=== PATIENT | male | born 1950 ===

== ENCOUNTER 2020-06-21 12:53 | Emergency (ER) | payer MEDICARE, SELFPAY ==
[2020-06-21 13:00] VITALS: BP 129/68; PULSE 86; RESP 18; TEMP 37; O2SAT 97; BMI 38.2
[2020-06-21 13:13] LABS: Glucose, Whole Blood 143 mg/dL (60-115)
--- NOTE | 2020-06-21 13:56 | ECG_ITS ---
Test Reason : NEAR SYNCOPE Blood Pressure : / mmHG Vent. Rate : 083 BPM Atrial Rate : 083 BPM P-R Int : 178 ms QRS Dur : 090 ms QT Int : 368 ms P-R-T Axes : 001 -42 060 degrees QTc Int : 432 ms Normal sinus rhythm Left anterior fascicular block Nonspecific T wave abnormality Abnormal ECG No previous ECGs available Referred By: Ladonna Chowdary Electronically Signed By:DARIA ROOT MD
--- NOTE | 2020-06-21 13:57 | ED_ITS ---
HPI - General Adult General Chief complaint: General Medical Stated complaint: near syncopy Time Seen by Provider: 06/21/20 13:46 Source: patient Mode of arrival: ambulatory Limitations: no limitations History of Present Illness HPI narrative: patient comes to the emergency room complaining of a near syncopal episode. Prior to arriving today's emergency room, patient was on the other side of the hospital at the [facility] waiting in line to be tested for COVID- 19. Patient states suddenly he felt lightheaded, and was lowered by bystanders to the ground. Patient states he did not have any chest pain, no shortness of breath, did not hit his head, denies being on blood thinners. Patient states he has been feeling 80 with chills over the last 2-3 days, patient states his has similar symptoms. Patient denies shortness of breath. Related Data Allergies Allergy/AdvReac Type Severity Reaction Status Date / Time No Known Allergies Allergy Verified 06/21/20 13:00 [No Known Allergies*] Review of Systems Review of Systems: Constitutional : No Weight loss, No Fever, Complaining of mild chills, generalized malaise AZUL ENT/Mouth : No Hearing loss, No Ear Pain, No Nasal Congestion, No Sinus Pain, No Hoarseness, No sore throat, No Rhinorrhea, No Swallowing Difficulty Eyes: No Eye Pain, No Swelling, No Redness, No Foreign Body, No Discharge, No Vision Changes Cardiovascular : No Chest Pain, No SOB, No Dyspnea on Exertion, No Orthopnea, No Edema, No Palpitations Respiratory : No Cough, No Sputum, No Wheezing, No Smoke Exposure, No Dyspnea Gastrointestinal : No Nausea, No Vomiting, No Diarrhea, No Constipation, No abdominal Pain, No Hematochezia, No Melena Genitourinary : no irregular bleeding, No Dysuria, No Urinary Frequency, No Hematuria, No Urinary Incontinence, No Urgency, No Flank Pain, No Urinary Flow Changes, No Hesitancy Musculoskeletal : No joint pain, No Myalgias, No Joint Swelling Skin : No Skin Lesions, No rash Neuro : No Weakness, No Numbness, No Paresthesias, No Loss of Consciousness, 1 episode of lightheadedness a near-syncope, No Headache Psych : No Anxiety/Panic, No Depression, No SI/HI/AH/VH, No Social Issues, Heme/Lymph: No Bruising, No Bleeding,No Lymphadenopathy Endocrine : No Polyuria, No Polydipsia, No Temperature Intolerance [facility] Past Medical History Medical History HTN (hypertension) Social History Social History Alcohol intake: unknown Smoked in Last 30 Days: No Use of substances other than those prescribed or required for medical reasons: No Advance Directives: No Advance Directives Information Provided: No Physical Exam Vital Signs: Vital Signs: Vital Signs Temp Pulse Resp BP Pulse Ox 06/21/20 15:31 82 16 125/77 97 06/21/20 13:00 98.6 F 86 18 129/68 97 Body Mass Index 38.2 Appearance: Alert. Oriented X3. No acute distress. Eyes: Pupils equal, round and reactive to light. ENT: Pharynx normal. Neck: Normal inspection. Neck supple. No lymph nodes noted. No crepitus CVS: Normal heart rate and rhythm. Pulses normal. Normal S1 and S2 Respiratory: No respiratory distress. Breath sounds normal. No Wheezing. No rales Abdomen: Soft and nontender. No rigidity. No distention. good BS x4 Skin: Skin warm and dry. Normal skin color. Normal skin turgor. Extremities: No lower extremity edema. No lower extremity edema. No Laceratio ns. No Rash Neuro: Oriented X 3. No motor deficit. No sensory deficit. Moving all extermities. No slurred speech. Course Course Course Narrative: patient's troponin is slightly elevated. At this time patient does not have any shortness of breath and no chest pain. Troponing #2 pending , to be drawn at 530pm Patient's COVID test is positive. Patient has been informed. the near syncope today was likely secondary to a vasovagal episode Sign-out given to Dr. Marie Medical Decision Making Lab Data Result diagrams: 06/21/20 14:35 06/21/20 14:35 Labs: Lab Results 06/21/20 06/21/20 06/21/20 Range/Units 13:09 14:35 14:35 WBC 3.7 L (4.8-10.8) X10*3/uL RBC 5.05 (4.60-5.80) X10*6/uL Hgb 14.8 (14.0-18.0) g/dl Hct 45.5 (42-52) % MCV 90.1 (80-98) fL MCH 29.3 (27.0-33.0) pg MCHC 32.5 (31.0-36.0) g/dl RDW 12.5 (11.0-16.0) % Plt Count 172 (160-400) X10*3/uL MPV 11.2 (9.4-12.4) fL Immature Gran % (Auto) 0.3 (0.0-0.4) % Neut % (Auto) 54.2 (45-73) % Lymph % (Auto) 31.5 (20-40) % [place] % (Auto) 13.7 H (2-11) % Eos % (Auto) 0.0 (0-4) % Baso % (Auto) 0.3 (0-2) % Lymph # (Auto) 1.2 (1.2-4.9) X10*3/uL [place] # (Auto) 0.5 (0.1-1.2) X10*3/uL Eos # (Auto) 0.0 (0.0-0.4) X10*3/uL Baso # (Auto) 0.0 (0.0-0.2) X10*3/uL Abs Immat Gran (auto) 0.01 (0.00-0.03) X10*3/uL Absolute Neuts (auto) 2.0 (2.0-8.3) X10*3/uL Absolute Nucleated RBC 0.000 (0.0-0.012) X10*3/uL Nucleated RBC % (auto) 0.0 (0.0-0.2) /100WBC D-Dimer 455 NG/ML Sodium (135-145) mmol/L Potassium (3.3-5.1) mmol/l Chloride (96-108) mmol/L Carbon Dioxide (22-29) mmol/L Anion Gap (12-20) BUN (9-16) mg/dL Creatinine (0.5-1.4) mg/dL Estim Creat Clear Calc Estimated GFR POC Glucose 143 H (60-115) mg/dL Random Glucose (60-115) mg/dL Calcium (8.4-10.2) mg/dL Troponin I High Sens (<3.5-35.0) ng/L Coronavirus (PCR) (Negative) 06/21/20 06/21/20 06/21/20 Range/Units 14:35 14:35 15:32 WBC (4.8-10.8) X10*3/uL RBC (4.60-5.80) X10*6/uL Hgb (14.0-18.0) g/dl Hct (42-52) % MCV (80-98) fL MCH (27.0-33.0) pg MCHC (31.0-36.0) g/dl RDW (11.0-16.0) % Plt Count (160-400) X10*3/uL MPV (9.4-12.4) fL Immature Gran % (Auto) (0.0-0.4) % Neut % (Auto) (45-73) % Lymph % (Auto) (20-40) % [place] % (Auto) (2-11) % Eos % (Auto) (0-4) % Baso % (Auto) (0-2) % Lymph # (Auto) (1.2-4.9) X10*3/uL [place] # (Auto) (0.1-1.2) X10*3/uL Eos # (Auto) (0.0-0.4) X10*3/uL Baso # (Auto) (0.0-0.2) X10*3/uL Abs Immat Gran (auto) (0.00-0.03) X10*3/uL Absolute Neuts (auto) (2.0-8.3) X10*3/uL Absolute Nucleated RBC (0.0-0.012) X10*3/uL Nucleated RBC % (auto) (0.0-0.2) /100WBC D-Dimer NG/ML Sodium 133 L (135-145) mmol/L Potassium 4.5 (3.3-5.1) mmol/l Chloride 98 (96-108) mmol/L Carbon Dioxide 26 (22-29) mmol/L Anion Gap 14 (12-20) BUN 14 (9-16) mg/dL Creatinine 1.65 H (0.5-1.4) mg/dL Estim Creat Clear Calc 46.3 Estimated GFR 41 POC Glucose (60-115) mg/dL Random Glucose 113 (60-115) mg/dL Calcium 8.6 (8.4-10.2) mg/dL Troponin I High Sens 7.0 (<3.5-35.0) ng/L Coronavirus (PCR) POSITIVE A (Negative) ECG Data Attestation: I personally reviewed and interpreted this ECG as follows: ( Normal sinus rhythm, heart rate 83, QTC 432, no ST segment depressions or elevations, non specific T-wave abnormalities) Discharge Plan Discharge Clinical Impression: COVID-19, Near syncope
[2020-06-21 14:43] LABS: Basophils Percent Auto 0.3 % (0-2); Hematocrit 45.5 % (42-52); Hemoglobin 14.8 g/dl (14.0-18.0); Imm Gran Abs Auto 0.01 X10*3/uL (0.00-0.03); Imm Gran Pct Auto 0.3 % (0.0-0.4); Lymphocytes Absolute Auto 1.2 X10*3/uL (1.2-4.9); Lymphocytes Percent Auto 31.5 % (20-40); MANUAL DIFF FLAG NO; Mean Corpuscular HGB Conc 32.5 g/dl (31.0-36.0); Mean Corpuscular Hemoglobin 29.3 pg (27.0-33.0); Mean Corpuscular Volume 90.1 fL (80-98); Mean Platelet Volume 11.2 fL (9.4-12.4); Monocytes Absolute Auto 0.5 X10*3/uL (0.1-1.2); Monocytes Percent Auto 13.7 % (2-11); Neutrophils Percent Auto 54.2 % (45-73); Platelet Count 172 X10*3/uL (160-400); Red Blood Count 5.05 X10*6/uL (4.60-5.80); Red Cell Distribution Width 12.5 % (11.0-16.0); White Blood Count 3.7 X10*3/uL (4.8-10.8)
[2020-06-21 14:56] LABS: D Dimer 455 NG/ML
[2020-06-21 15:05] LABS: Anion Gap 14 (12-20); Blood Urea Nitrogen 14 mg/dL (9-16); Calcium 8.6 mg/dL (8.4-10.2); Carbon Dioxide 26 mmol/L (22-29); Chloride 98 mmol/L (96-108); Creatinine Clr Calc Pharmacy 46.3; Estimated Glomerular Filt Rate 41; Glucose Random 113 mg/dL (60-115); Potassium 4.5 mmol/l (3.3-5.1); Sodium 133 mmol/L (135-145)
[2020-06-21 15:31] VITALS: BP 125/77; PULSE 82; RESP 16; O2SAT 97
[2020-06-21 16:26] LABS: SARS COV2 PCR INHOUSE POSITIVE (Negative)
--- NOTE | 2020-06-21 16:36 | XR_ITS ---
EXAMINATION: XR CHEST CLINICAL INFORMATION: Rule out pneumonia COMPARISON: Chest x-ray 01/05/2012 TECHNIQUE: Frontal view of the chest was obtained. FINDINGS: Cardiac silhouette is normal in size. Lungs are well aerated. No lobar consolidation. No pleural effusion or pneumothorax. XR/XR chest 1V IMPRESSION: No acute pulmonary pathology.
[2020-06-21] MEDS: 0.9 % Sodium Chloride 1,000 ML 999 ML IVCONT (16:40)
--- NOTE | 2020-06-21 16:49 | PC.NURSE ---
pt sitting upright in bed, resps are = and nonlabored with clear bronchial and vesicular lung sounds bilat. pt is awaitng repeat trop and chest xray for dispo. pt is aware of + covid test.
[2020-06-21 16:52] VITALS: BP 136/68; PULSE 80; RESP 16; TEMP 37.2; O2SAT 98
[2020-06-21 18:04] LABS: Troponin-I High Sensitivity 6.5 ng/L (<3.5-35.0)
--- NOTE | 2020-06-21 18:31 | ED_ITS ---
HPI - General Adult General Chief complaint: General Medical Stated complaint: near syncopy Time Seen by Provider: 06/21/20 13:46 Source: patient Mode of arrival: ambulatory Limitations: no limitations Related Data Allergies Allergy/AdvReac Type Severity Reaction Status Date / Time No Known Allergies Allergy Verified 06/21/20 13:00 [No Known Allergies*] [facility] Past Medical History Medical History HTN (hypertension) Social History Social History Alcohol intake: unknown Smoked in Last 30 Days: No Use of substances other than those prescribed or required for medical reasons: No Advance Directives: No Advance Directives Information Provided: No Physical Exam Vital Signs: Vital Signs: Vital Signs Temp Pulse Resp BP Pulse Ox 06/21/20 16:52 98.9 F 80 16 136/68 98 06/21/20 15:31 82 16 125/77 97 06/21/20 13:00 98.6 F 86 18 129/68 97 Body Mass Index 38.2 Course Course Course Narrative: patient feeling much better now symptoms likely from vasovagal syncope from poor oral intake and COVID-19 infection chest x-ray negative for any infiltrate patient is saturating 98% at room air creatinine slightly elevated to 1.65. Patient advised to drink plenty of fluids and follow with primary care doctor to recheck his kidney functions and to report to the ER if any shortness of breath Medical Decision Making Lab Data Result diagrams: 06/21/20 14:35 06/21/20 14:35 Labs: Lab Results 06/21/20 06/21/20 06/21/20 Range/Units 13:09 14:35 14:35 WBC 3.7 L (4.8-10.8) X10*3/uL RBC 5.05 (4.60-5.80) X10*6/uL Hgb 14.8 (14.0-18.0) g/dl Hct 45.5 (42-52) % MCV 90.1 (80-98) fL MCH 29.3 (27.0-33.0) pg MCHC 32.5 (31.0-36.0) g/dl RDW 12.5 (11.0-16.0) % Plt Count 172 (160-400) X10*3/uL MPV 11.2 (9.4-12.4) fL Immature Gran % (Auto) 0.3 (0.0-0.4) % Neut % (Auto) 54.2 (45-73) % Lymph % (Auto) 31.5 (20-40) % [place] % (Auto) 13.7 H (2-11) % Eos % (Auto) 0.0 (0-4) % Baso % (Auto) 0.3 (0-2) % Lymph # (Auto) 1.2 (1.2-4.9) X10*3/uL [place] # (Auto) 0.5 (0.1-1.2) X10*3/uL Eos # (Auto) 0.0 (0.0-0.4) X10*3/uL Baso # (Auto) 0.0 (0.0-0.2) X10*3/uL Abs Immat Gran (auto) 0.01 (0.00-0.03) X10*3/uL Absolute Neuts (auto) 2.0 (2.0-8.3) X10*3/uL Absolute Nucleated RBC 0.000 (0.0-0.012) X10*3/uL Nucleated RBC % (auto) 0.0 (0.0-0.2) /100WBC D-Dimer 455 NG/ML Sodium (135-145) mmol/L Potassium (3.3-5.1) mmol/l Chloride (96-108) mmol/L Carbon Dioxide (22-29) mmol/L Anion Gap (12-20) BUN (9-16) mg/dL Creatinine (0.5-1.4) mg/dL Estim Creat Clear Calc Estimated GFR POC Glucose 143 H (60-115) mg/dL Random Glucose (60-115) mg/dL Calcium (8.4-10.2) mg/dL Troponin I High Sens (<3.5-35.0) ng/L Coronavirus (PCR) (Negative) 06/21/20 06/21/20 06/21/20 Range/Units 14:35 14:35 15:32 WBC (4.8-10.8) X10*3/uL RBC (4.60-5.80) X10*6/uL Hgb (14.0-18.0) g/dl Hct (42-52) % MCV (80-98) fL MCH (27.0-33.0) pg MCHC (31.0-36.0) g/dl RDW (11.0-16.0) % Plt Count (160-400) X10*3/uL MPV (9.4-12.4) fL Immature Gran % (Auto) (0.0-0.4) % Neut % (Auto) (45-73) % Lymph % (Auto) (20-40) % [place] % (Auto) (2-11) % Eos % (Auto) (0-4) % Baso % (Auto) (0-2) % Lymph # (Auto) (1.2-4.9) X10*3/uL [place] # (Auto) (0.1-1.2) X10*3/uL Eos # (Auto) (0.0-0.4) X10*3/uL Baso # (Auto) (0.0-0.2) X10*3/uL Abs Immat Gran (auto) (0.00-0.03) X10*3/uL Absolute Neuts (auto) (2.0-8.3) X10*3/uL Absolute Nucleated RBC (0.0-0.012) X10*3/uL Nucleated RBC % (auto) (0.0-0.2) /100WBC D-Dimer NG/ML Sodium 133 L (135-145) mmol/L Potassium 4.5 (3.3-5.1) mmol/l Chloride 98 (96-108) mmol/L Carbon Dioxide 26 (22-29) mmol/L Anion Gap 14 (12-20) BUN 14 (9-16) mg/dL Creatinine 1.65 H (0.5-1.4) mg/dL Estim Creat Clear Calc 46.3 Estimated GFR 41 POC Glucose (60-115) mg/dL Random Glucose 113 (60-115) mg/dL Calcium 8.6 (8.4-10.2) mg/dL Troponin I High Sens 7.0 (<3.5-35.0) ng/L Coronavirus (PCR) POSITIVE A (Negative) 10/27/20 Range/Units 17:34 WBC (4.8-10.8) X10*3/uL RBC (4.60-5.80) X10*6/uL Hgb (14.0-18.0) g/dl Hct (42-52) % MCV (80-98) fL MCH (27.0-33.0) pg MCHC (31.0-36.0) g/dl RDW (11.0-16.0) % Plt Count (160-400) X10*3/uL MPV (9.4-12.4) fL Immature Gran % (Auto) (0.0-0.4) % Neut % (Auto) (45-73) % Lymph % (Auto) (20-40) % [place] % (Auto) (2-11) % Eos % (Auto) (0-4) % Baso % (Auto) (0-2) % Lymph # (Auto) (1.2-4.9) X10*3/uL [place] # (Auto) (0.1-1.2) X10*3/uL Eos # (Auto) (0.0-0.4) X10*3/uL Baso # (Auto) (0.0-0.2) X10*3/uL Abs Immat Gran (auto) (0.00-0.03) X10*3/uL Absolute Neuts (auto) (2.0-8.3) X10*3/uL Absolute Nucleated RBC (0.0-0.012) X10*3/uL Nucleated RBC % (auto) (0.0-0.2) /100WBC D-Dimer NG/ML Sodium (135-145) mmol/L Potassium (3.3-5.1) mmol/l Chloride (96-108) mmol/L Carbon Dioxide (22-29) mmol/L Anion Gap (12-20) BUN (9-16) mg/dL Creatinine (0.5-1.4) mg/dL Estim Creat Clear Calc Estimated GFR POC Glucose (60-115) mg/dL Random Glucose (60-115) mg/dL Calcium (8.4-10.2) mg/dL Troponin I High Sens 6.5 (<3.5-35.0) ng/L Coronavirus (PCR) (Negative) Discharge Plan Discharge Clinical Impression: COVID-19, Near syncope Acute renal failure Qualifiers: Acute renal failure type: unspecified Qualified Code(s): N17.9 - Acute kidney failure, unspecified Patient Disposition: Home, Self-Care Instructions: Acute Kidney Injury (DC), Near Syncope (ED), COVID-19 (Coronavirus Disease 2019) (ED) Additional Instructions: drink plenty of fluids, follow-up with primary care doctor next 2- 3 days to recheck her kidney functions, report to the ER if increased shortness of breath or not feeling better Print Language: Bulgarian
== END 2020-06-21 19:05 | disposition home or self-care (01) ==
PROVIDERS: Emergency Medicine; Emergency Provider Internal Medicine; PCP Family Medicine
DX: U07.1 COVID-19 (principal); N17.9 Acute kidney failure, unspecified
CPT/HCPCS: 36415; 71045; 80048; 82947; 84484; 85025; 85379; 87635; 93005; 96360; 99284

== ENCOUNTER 2020-09-07 12:15 | Outpatient (REF) | payer MEDICARE, SELFPAY ==
[2020-09-07 14:13] LABS: Anion Gap 13 (12-20); Blood Urea Nitrogen 15 mg/dL (9-16); Carbon Dioxide 26 mmol/L (22-29); Chloride 104 mmol/L (96-108); Estimated Glomerular Filt Rate > 60; Potassium 4.3 mmol/l (3.3-5.1); Sodium 139 mmol/L (135-145)
== END 2020-09-07 12:16 | disposition home or self-care (01) ==
LOC: HO.10HDL 12:15
PROVIDERS: Visit Provider Family Medicine
DX: I10 Essential (primary) hypertension (principal)
CPT/HCPCS: 36415; 80051; 82565; 84520

== ENCOUNTER 2021-05-10 12:47 | Outpatient (REF) | payer MEDICARE, SELFPAY | END 2021-05-10 12:48 | disposition home or self-care (01) | LOC: HO.LAB 12:47 | PROVIDERS: PCP Family Medicine; Visit Provider Internal Medicine | DX: Z20.822 Contact with and (suspected) exposure to COVID-19 (principal) | CPT/HCPCS: C9803; U0003; U0005 ==

== ENCOUNTER 2021-06-28 11:22 | Outpatient (REF) | payer MEDICARE, SELFPAY ==
[2021-06-28 11:33] LABS: MANUAL DIFF FLAG NO
[2021-06-28 11:53] LABS: Basophils Absolute Auto 0.1 X10*3/uL (0.0-0.2); Basophils Percent Auto 1.3 % (0-2); Eosinophils Absolute Auto 0.2 X10*3/uL (0.0-0.4); Eosinophils Percent Auto 3.1 % (0-4); Hematocrit 45.2 % (42.0-52.0); Hemoglobin 14.7 g/dl (14.0-18.0); Lymphocytes Percent Auto 56.3 % (20-40); Mean Corpuscular HGB Conc 32.5 g/dl (31.0-36.0); Mean Corpuscular Volume 92.2 fL (80.0-98.0); Mean Platelet Volume 11.3 fL (9.4-12.4); Monocytes Absolute Auto 0.5 X10*3/uL (0.1-1.2); Monocytes Percent Auto 9.8 % (2-11); Neutrophils Absolute Auto 1.59 x10*3/uL (2.0-8.3); Neutrophils Percent Auto 29.5 % (45-73); Platelet Count 228 X10*3/uL (160-400); Red Cell Distribution Width 12.4 % (11.0-16.0); White Blood Count 5.4 X10*3/uL (4.8-10.8)
[2021-06-28 12:37] LABS: Alanine Aminotransferase 27 U/L (0-40); Anion Gap 12 (12-20); Aspartate Amino Transferase 28 U/L (5-37); Blood Urea Nitrogen 12 mg/dL (9-16); Carbon Dioxide 25 mmol/L (22-29); Chloride 102 mmol/L (96-108); Estimated Glomerular Filt Rate 51; Potassium 4.1 mmol/L (3.3-5.1); Sodium 135 mmol/L (135-145)
== END 2021-06-28 11:23 | disposition home or self-care (01) ==
LOC: HO.LAB 11:22
PROVIDERS: Visit Provider Family Medicine
DX: I10 Essential (primary) hypertension (principal); K75.81 Nonalcoholic steatohepatitis (NASH); D72.819 Decreased white blood cell count, unspecified
CPT/HCPCS: 36415; 80051; 82565; 84450; 84460; 84520; 85025

== ENCOUNTER 2022-05-11 10:01 | Outpatient (REF) | payer MEDICARE, SELFPAY ==
[2022-05-11 10:31] LABS: Basophils Absolute Auto 0.1 X10*3/uL (0.0-0.2); Basophils Percent Auto 1.5 % (0-2); Eosinophils Absolute Auto 0.2 X10*3/uL (0.0-0.4); Eosinophils Percent Auto 3.3 % (0-4); Hematocrit 42.8 % (42.0-52.0); Hemoglobin 14.2 g/dl (14.0-18.0); Imm Gran Abs Auto 0.01 X10*3/uL (0.00-0.03); Imm Gran Pct Auto 0.2 % (0.0-0.4); Lymphocytes Absolute Auto 3.7 X10*3/uL (1.2-4.9); Lymphocytes Percent Auto 61.5 % (20-40); MANUAL DIFF FLAG SCAN; Mean Corpuscular HGB Conc 33.2 g/dl (31.0-36.0); Mean Corpuscular Hemoglobin 30.7 pg (27.0-33.0); Mean Corpuscular Volume 92.4 fL (80.0-98.0); Mean Platelet Volume 10.9 fL (9.4-12.4); Monocytes Absolute Auto 0.6 X10*3/uL (0.1-1.2); Monocytes Percent Auto 9.6 % (2-11); Neutrophils Absolute Auto 1.4 x10*3/uL (2.0-8.3); Neutrophils Percent Auto 23.9 % (45-73); Platelet Count 246 X10*3/uL (160-400); Red Blood Count 4.63 X10*6/uL (4.60-5.80); Red Cell Distribution Width 12.2 % (11.0-16.0); SCAN SMEAR FLAG 1
[2022-05-11 10:56] LABS: Anion Gap 15 (12-20); Blood Urea Nitrogen 18 mg/dL (9-16); Carbon Dioxide 23 mmol/L (22-29); Chloride 105 mmol/L (96-108); Estimated Glomerular Filt Rate 49; Potassium 4.4 mmol/L (3.3-5.1); Sodium 139 mmol/L (135-145)
[2022-05-11 11:02] LABS: SLIDE REVIEW VERIFIED
[2022-05-11 11:34] LABS: Prostate Specific Antigen Scr 7.51 ng/mL (<0.05-4.0)
== END 2022-05-11 10:02 | disposition home or self-care (01) ==
LOC: HO.LAB 10:01
PROVIDERS: PCP Family Medicine; Visit Provider Family Medicine
DX: Z12.5 Encounter for screening for malignant neoplasm of prostate (principal); N40.0 Benign prostatic hyperplasia without lower urinary tract symptoms; I10 Essential (primary) hypertension; D72.819 Decreased white blood cell count, unspecified
CPT/HCPCS: 36415; 80051; 82565; 84153; 84520; 85025

== ENCOUNTER 2022-10-10 10:30 | Day surgery (SDC) | payer MEDICARE, SELFPAY ==
[2022-10-10 08:54] VITALS: BMI 35.4
[2022-10-10 10:34] VITALS: BP 153/86; PULSE 85; RESP 18; TEMP 36.6; O2SAT 96
[2022-10-10] MEDS: Lactated Ringers 1,000 ML 50 ML IVCONT (11:11)
--- NOTE | 2022-10-10 11:14 | HO.ANESPROP2 ---
HPI - Anesthesia Eval Consult details Narrative: 72 yo male patient for Colonoscopy PMFSH Active Problems Active Problems: All Active Problems (Updated 06/22/20 @ 00:00 by Anneliese Mcarthur) HTN Past Medical History Medical History (Updated 10/10/22 @ 11:34 by Krissy Troy MD) COVID HTN (hypertension) Family History Family history of problems with anesthesia: No Surgical History Surgical History Hx of colonoscopy History of Problems with Anesthesia: No Social History Social History Alcohol intake: unknown Patient Tobacco Use Status: Former Tobacco user Are you DNR?: No Advance Directives: No Advance Directives Information Provided: Yes Recently lost weight without trying: No Nutrition Risks: No Nutritional Risk Meds Allergies Allergy/AdvReac Type Severity Reaction Status Date / Time No Known Allergies Allergy Verified 06/21/20 13:00 [No Known Allergies*] Active Medications: Current Medications Lactated Ringer's (Lr) 1,000 mls @ 50 mls/hr IVCONT .Q20H SANAZ Last Admin: 10/10/22 11:11 Dose: 50 mls/hr Sodium Biphosphate/Sodium Phosphate (Sodium Phosphate,[place]-Dibasic 133 Ml Enema) 133 ml HI ONCE PRN PRN Reason: Poor Colonoscopy Prep Results Home Medications Medication Instructions Recorded Confirmed Last Taken Type ascorbic acid (vitamin C) 250 mg 250 mg PO BID 10/09/22 10/09/22 10/03/22 History tablet (Vitamin C) aspirin 81 mg capsule 81 mg PO DAILY 10/09/22 10/09/22 10/03/22 History diltiazem HCl 240 mg capsule,24 120 mg PO DAILY 10/09/22 10/10/22 10/10/22 History hr,extended release lisinopril 10 mg tablet 10 mg PO DAILY 10/09/22 10/09/22 10/09/22 History multivitamin 1 tab PO DAILY 10/09/22 10/09/22 10/03/22 History trazodone 50 mg tablet 50 mg PO BEDTIME 10/09/22 10/09/22 10/03/22 History Exam Exam Date and Time: October 10, 2022 111 Height,Weight and Vital Signs: Height 5 ft 9 in Weight 108.862 kg Last Vital Signs Temp 97.9 F 10/10/22 10:34 Pulse 85 10/10/22 10:34 Resp 18 10/10/22 10:34 BP 153/86 H 10/10/22 10:34 Pulse Ox 96 10/10/22 10:34 O2 Del Method 10/10/22 10:34 Airway Mallampati Class: III TM Dist: >3cm Neck ROM: Full Denture: Upper and Lower Heart: RRR Lungs: CTAB Assessment and Plan Assessment Anesthesia Assessment: Anesthesia Plan Discussed and Chart Reviewed Final Anesthetic Review Family History of Problems with Anesthesia: No History of Problems with Anesthesia: No NPO: Yes ASA Class: II Final Preanesthetic Review: No Changes in Pt Med Stat, Meds/Allgs Chart Reviewed, Consent Obtained/Reviewed and Anes Risks/Benef Reviewed Patient Risk: Low Procedure Risk: Low Assessment/Block/Sedation in SS: Assess/Block/Sedation-SS Anesthetic Plan Anesthetic Plan: MAC: Disposition: Standard PACU
[2022-10-10 12:53] VITALS: BP 111/71; PULSE 77; RESP 14; TEMP 37; O2SAT 96
--- NOTE | 2022-10-10 12:54 | PM.OP ---
Brief Operative Note Date of Service: 10/10/22 Pre-op diagnosis: Screening Post-op diagnosis: other (Diverticulosis) Procedure: Colonoscopy to cecum Surgeon: Vineet Delatorre Anesthesia: MAC Was an Saturation Equipment Operator used for this Procedure?: No Estimated blood loss (mL): 0 Pathology: none sent Condition: stable Disposition: PACU
[2022-10-10 13:08] VITALS: BP 118/67; PULSE 73; RESP 16; TEMP 36.7; O2SAT 95
[2022-10-10 13:23] VITALS: BP 117/77; PULSE 68; RESP 18; O2SAT 95
--- NOTE | 2022-10-11 04:23 | OP_ITS ---
SURGEON: Vineet Delatorre MD INDICATIONS: The patient presents for evaluation of colorectal cancer screening and personal history of tubular adenoma of the colon. Full consent has been obtained from him for this, including risks of bleeding and perforation. PREOPERATIVE DIAGNOSIS: POSTOPERATIVE DIAGNOSIS: PROCEDURE PERFORMED: Colonoscopy to the cecum. ESTIMATED BLOOD LOSS: COMPLICATIONS: ANESTHESIA: Medications used, monitored anesthesia care. ASSISTANTS: SPECIMENS: PREOPERATIVE DIAGNOSES: Colorectal cancer screening and personal history of tubular adenoma of the colon. POSTOPERATIVE DIAGNOSES: Colorectal cancer screening and personal history of tubular adenoma of the colon, diverticulosis, and internal hemorrhoids. PROCEDURE IN DETAIL: The patient was placed in left lateral decubitus position. The digital rectal exam revealed no abnormalities. The Olympus video pediatric colonoscope was entered into the rectum and advanced easily to the cecum. Once in the cecum, I did identify normal-appearing cecal pouch with appendiceal orifice and a normal-appearing ileocecal valve. The entire cecum and ileocecal valve appeared normal. The scope was then slowly withdrawn, assessing all mucosal surfaces carefully. Preparation was excellent. I did not visualize any sign of polyps, colitis, nor angiodysplasia. There was a mild amount of sigmoid diverticulosis. In the rectum, the scope was retroflexed visualizing internal hemorrhoids, but no other pathology. The rectal mucosa appeared normal. Scope was straightened and withdrawn from the patient. He tolerated the procedure well and was returned to recovery area in stable condition. IMPRESSION: 1. Diverticulosis. 2. Internal hemorrhoids. PLAN: Given his previous history of tubular adenoma, I would recommend a followup colonoscopy in 5 years for further surveillance. He was advised to resume his aspirin today. He would otherwise see me on a p.r.n. basis. This has been discussed with his daughter, Mady. MD SURI Barroso/PRIYA / [phone] SIMONA
== END 2022-10-10 14:03 | disposition home or self-care (01) ==
PROVIDERS: PCP Family Medicine; Visit Provider Internal Medicine
PROC: 0DJD8ZZ Inspection of Lower Intestinal Tract, Via Natural or Artificial Opening Endoscopic (ICD-10-PCS; CPT 45378; principal; 2022-10-10 11:50)
DX: Z12.11 Encounter for screening for malignant neoplasm of colon (principal); Z86.010 Personal history of colon polyps; K57.30 Diverticulosis of large intestine without perforation or abscess without bleeding; K64.8 Other hemorrhoids; I10 Essential (primary) hypertension; Z79.899 Other long term (current) drug therapy; Z79.82 Long term (current) use of aspirin
CPT/HCPCS: G0105

== ENCOUNTER 2022-10-19 09:36 | Outpatient (REF) | payer MEDICARE, SELFPAY ==
[2022-10-19 11:04] LABS: Alanine Aminotransferase 23 U/L (0-40); Anion Gap 13 (12-20); Aspartate Amino Transferase 27 U/L (5-37); Blood Urea Nitrogen 17 mg/dL (9-16); Carbon Dioxide 26 mmol/L (22-29); Chloride 106 mmol/L (96-108); Cholesterol 251 mg/dL; Estimated Glomerular Filt Rate 49; Glucose Fasting 117 mg/dL (60-99); HDL Cholesterol 37 mg/dL; LDL Cholesterol Calculated 180 mg/dl; Potassium 4.5 mmol/L (3.3-5.1); Sodium 140 mmol/L (135-145); Triglycerides 170 mg/dL
[2022-10-19 11:23] LABS: Prostate Specific Antigen 6.78 ng/mL (<0.05-4.0)
== END 2022-10-19 09:37 | disposition home or self-care (01) ==
LOC: HO.LAB 09:36
PROVIDERS: PCP Family Medicine; Visit Provider Family Medicine
DX: I10 Essential (primary) hypertension (principal); R97.8 Other abnormal tumor markers; E78.00 Pure hypercholesterolemia, unspecified; R73.9 Hyperglycemia, unspecified; Z12.5 Encounter for screening for malignant neoplasm of prostate
CPT/HCPCS: 36415; 80051; 80061; 82565; 82947; 84153; 84450; 84460; 84520

== ENCOUNTER 2023-07-03 08:16 | Outpatient (REF) | payer MEDICARE, SELFPAY ==
[2023-07-03 09:17] LABS: MANUAL DIFF FLAG NO
[2023-07-03 09:27] LABS: Basophils Absolute Auto 0.1 X10*3/uL (0.0-0.2); Basophils Percent Auto 1.6 % (0-2); Eosinophils Absolute Auto 0.2 X10*3/uL (0.0-0.4); Hematocrit 44.8 % (42.0-52.0); Hemoglobin 14.6 g/dl (14.0-18.0); Imm Gran Abs Auto 0.01 X10*3/uL (0.00-0.03); Imm Gran Pct Auto 0.2 % (0.0-0.4); Lymphocytes Absolute Auto 3.7 X10*3/uL (1.2-4.9); Mean Corpuscular HGB Conc 32.6 g/dl (31.0-36.0); Mean Corpuscular Hemoglobin 29.8 pg (27.0-33.0); Mean Corpuscular Volume 91.4 fL (80.0-98.0); Mean Platelet Volume 11.1 fL (9.4-12.4); Monocytes Absolute Auto 0.7 X10*3/uL (0.1-1.2); Monocytes Percent Auto 11.6 % (2-11); Neutrophils Absolute Auto 1.6 x10*3/uL (2.0-8.3); Neutrophils Percent Auto 24.6 % (45-73); Platelet Count 266 X10*3/uL (160-400); Red Cell Distribution Width 12.7 % (11.0-16.0); White Blood Count 6.3 X10*3/uL (4.8-10.8)
[2023-07-03 09:33] LABS: Estimated Average Glucose 120 mg/dL; Hemoglobin A1c % 5.8 % (<6.0)
[2023-07-03 09:48] LABS: Anion Gap 13 (12-20); Blood Urea Nitrogen 18 mg/dL (9-16); Carbon Dioxide 25 mmol/L (22-29); Chloride 106 mmol/L (96-108); Estimated Glomerular Filt Rate 46; Glucose Fasting 117 mg/dL (60-99); Potassium 4.4 mmol/L (3.3-5.1); Sodium 140 mmol/L (135-145)
== END 2023-07-03 08:17 | disposition home or self-care (01) ==
LOC: HO.LAB 08:16
PROVIDERS: PCP Family Medicine; Visit Provider Family Medicine
DX: I10 Essential (primary) hypertension (principal); D72.819 Decreased white blood cell count, unspecified; R73.9 Hyperglycemia, unspecified
CPT/HCPCS: 36415; 80051; 82565; 82947; 83036; 84520; 85025

== ENCOUNTER 2024-02-11 08:31 | Outpatient (REF) | payer MEDICARE, SELFPAY ==
--- NOTE | ~2024-02-11 | XR_ITS ---
EXAMINATION: XR CHEST CLINICAL INFORMATION: Cough COPD COMPARISON: Chest radiograph from 06/21/2020 TECHNIQUE: 2 views of the chest were obtained. FINDINGS: Streaky opacities left lung base may reflect atelectasis. No pneumothorax. Trachea is midline. Cardiac mediastinal silhouette is not enlarged. No large pleural effusion. Degenerative changes of the thoracolumbar spine with anterior flowing osteophytes. Soft tissues are unremarkable. XR/XR chest 2V IMPRESSION: Streaky opacities left lung base may reflect atelectasis.
[2024-02-11 08:53] LABS: MANUAL DIFF FLAG NO
[2024-02-11 09:11] LABS: Basophils Absolute Auto 0.1 X10*3/uL (0.0-0.2); Basophils Percent Auto 1.2 % (0-2); Eosinophils Absolute Auto 0.3 X10*3/uL (0.0-0.4); Eosinophils Percent Auto 5.4 % (0-4); Hematocrit 40.7 % (42.0-52.0); Hemoglobin 13.7 g/dl (14.0-18.0); Imm Gran Abs Auto 0.01 X10*3/uL (0.00-0.03); Imm Gran Pct Auto 0.2 % (0.0-0.4); Lymphocytes Absolute Auto 2.7 X10*3/uL (1.2-4.9); Mean Corpuscular HGB Conc 33.7 g/dl (31.0-36.0); Mean Corpuscular Hemoglobin 30.1 pg (27.0-33.0); Mean Corpuscular Volume 89.5 fL (80.0-98.0); Monocytes Absolute Auto 0.6 X10*3/uL (0.1-1.2); Monocytes Percent Auto 12.3 % (2-11); Neutrophils Absolute Auto 1.5 x10*3/uL (2.0-8.3); Neutrophils Percent Auto 28.9 % (45-73); Platelet Count 262 X10*3/uL (160-400); Red Blood Count 4.55 X10*6/uL (4.60-5.80); Red Cell Distribution Width 13.3 % (11.0-16.0); White Blood Count 5.2 X10*3/uL (4.8-10.8)
[2024-02-11 09:42] LABS: Anion Gap 14 (12-20); Blood Urea Nitrogen 15 mg/dL (9-16); Carbon Dioxide 23 mmol/L (22-29); Chloride 107 mmol/L (96-108); Estimated Glomerular Filt Rate 48; Potassium 4.2 mmol/L (3.3-5.1); Sodium 140 mmol/L (135-145)
[2024-02-12 14:44] LABS: Homocysteine 14.2 umol/L (<11.4)
== END 2024-02-11 08:32 | disposition home or self-care (01) ==
LOC: HO.XRAY 08:31
PROVIDERS: PCP Family Medicine; Visit Provider Family Medicine
DX: R05.9 Cough, unspecified (principal); J44.9 Chronic obstructive pulmonary disease, unspecified; I10 Essential (primary) hypertension; D72.819 Decreased white blood cell count, unspecified
CPT/HCPCS: 36415; 71046; 80051; 82565; 83090; 84520; 85025

== ENCOUNTER 2024-05-15 09:20 | Outpatient (AMB) | payer MEDICARE, SELFPAY ==
--- NOTE | 2024-05-15 07:44 | A.OFFVIS_ITS ---
Intake Visit Reasons: Former Smoker Allergies No Known Allergies [No Known Allergies*] Allergy (Verified 06/21/20 13:00) HPI HPI Former Smoker: Details: Initial visit for this 74yo former smoker with a 23PYH. Patient started smoking at age 17 for 47 years at 1/2ppd. He quit 10 years ago - in 2013. . Denies marijuana use. Reports social second hand smoke exposure. 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 Denies known family history of lung cancer. Denies personal history of cancers. Denies chest CT in last year. . Denies recent travel outside the [place]. Denies recent respiratory illness or recent hospitalization for respiratory issues. Reports testing positive for COVID in 2019 Admits receiving COVID Vaccine. . Denies fever, chills, new/worsening cough, hemoptysis, hoarseness or dysphagia. Denies significant chest pain, significant dyspnea or unintentional weight loss. Patient Lung Cancer Screening Questionnaire reviewed with patient by provider. . Shared Decision Making Completed. Patient meets criteria. Discussed in detail with patient, the risk vs benefit of LDCT screening. Patient consents to proceed with scan. Discussed and encouraged continued smoking cessation. [facility] Medical History (Updated 05/15/24 @ 09:31 by Narcisa Duffy PA-C) HTN (hypertension) Personal history of nicotine dependence Tubular adenoma of colon Enlarged prostate History of COVID-19 Surgical History (Updated 04/03/24 @ 11:59 by Narcisa Duffy PA-C) History of colonoscopy Social History (Updated 05/15/24 @ 09:31 by Narcisa Duffy PA-C) Alcohol intake: current Alcohol intake frequency: a few times a week Patient Tobacco Use Status: Former Tobacco user Years Smoked: (onset 17yo, 1/2ppd x 47yrs, 23pyh - quit 2013) Assessment & Plan Assessment & Plan (1) Personal history of nicotine dependence: Comment: (onset 17yo, 1/2ppd x 47yrs, 23pyh - quit 2013) Code(s): Z87.891 - Personal history of nicotine dependence Category: Medical Plan: - SDM visit completed today in office. - Patient meets criteria for LDCT for lung cancer screening purposes and is asymptomatic. - Smoking cessation counseling offered. Patients can always call [phone]. - Will arrange for a LDCT scan of the chest for screening purposes at [facility]. - Risks, benefits, and alternatives were discussed in detail and the patient agrees to proceed. - Risks discussed include but are not limited to: radiation exposure, anxiety during testing and while awaiting results, false negatives, false positives and possibility of additional intervention such as further imaging or surgical procedures for benign disease. - Benefits are obviously detection of lung cancer at an early stage which can lead to improved outcomes. - Discussed the importance of screening program compliance with adherence to yearly LDCT scan as scheduled - or sooner interval scans for personalized screening regimen. - Discussed follow up plan. Our office will send a letter discussing results and if needed set up phone call and office visit based on CT findings. - Patient educated on results categorization and the management decisions for suspicious findings potentially found on the screening LDCT scan. Any patient with a Lung RADS score of 3 or 4 will be reviewed by a multidisciplinary team at [facility] to form a plan of action in regards to scan findings. - If further work up is warranted for a suspicious lung finding this will be followed by the Lung Cancer Screening program in conjunction with the Thoracic Surgery Department at [facility]. - A copy of the office note and LDCT will be sent to the patient's PCP - as well as documentation on any associated further plans of care. - Incidental findings on LDCT are the PCP's responsibility. These findings are indicated with an S finding on the LDCT Assessment. A note discussing the findings will be sent to the PCP who is then responsible for further management. - All questions answered.? Coding Level of Care Code Lung Cancer Screening G0296 Diagnoses Personal history of nicotine dependence Z87.891
== END 2024-05-15 10:59 | disposition home or self-care (01) ==
PROVIDERS: PCP Family Medicine; Visit Provider Physician Assistant Medical
DX: Z87.891 Personal history of nicotine dependence (principal)
CPT/HCPCS: G0296

== ENCOUNTER 2024-05-15 09:30 | Outpatient (REF) | payer MEDICARE, SELFPAY ==
--- NOTE | ~2024-05-15 | CT_ITS ---
EXAMINATION: CT LOW-DOSE SCREENING CHEST WITHOUT CONTRAST CLINICAL INFORMATION: Personal history of nicotine dependence. Smoked 3 packs per day for 30 years. Not a current smoker. COMPARISON: Chest radiograph 02/11/2024. TECHNIQUE: Multidetector volumetric CT imaging of the chest is performed on a Siemens SOMATOM Definition scanner without contrast using low dose technique. Additional 2D coronal and sagittal reformatted images and axial 3D maximum intensity projection (MIP) images are generated on the CT workstation. This CT examination was performed using dose optimization techniques as appropriate, variously including the following: *Automated exposure control *Adjustment of mA and/or kV according to patient size (this includes techniques or standardized protocols for targeted exams where dose is matched to indication/reason for exam; i.e. extremities or head) *Use of iterative reconstruction technique TOTAL EXAM DLP: 61 mGy-cm. CTDIvol: 191 mGy. FINDINGS: PULMONARY NODULES: No suspicious pulmonary nodules. LUNGS: Lungs bilaterally symmetrically expanded. There is mild emphysema and bronchial thickening without bronchiectasis. Some lingular and right middle lobe scarring is present. No effusion or pneumothorax. Central airways patent. MEDIASTINUM: No mediastinal, hilar or axillary adenopathy or free fluid collection. CORONARY ARTERY CALCIFICATION: None visualized on this study. THYROID GLAND: Unremarkable to the extent seen. CARDIOVASCULAR STRUCTURES: Aortic and heart size normal. No pericardial effusion. CHEST WALL/AXILLA: Unremarkable. UPPER ABDOMEN: Included portions of the solid organs in the upper abdomen unremarkable on noncontrast imaging aside from the presence of hepatic steatosis. OSSEOUS STRUCTURES: No suspicious focal findings. CT/CT lung screening IMPRESSION: 1. No evidence of pulmonary malignancy. 2. Mild emphysema and bronchial thickening. 3. Hepatic steatosis. ASSESSMENT: 1. Lung-RADS Category 1: Negative. There are no nodules or there are definitely benign nodules. N/A 2. Lung-RADS Category S: Negative. There are no clinically significant or potentially clinically significant findings not related to the lungs requiring urgent additional evaluation. RECOMMENDATION: Continued routine annual low-dose CT lung screening in 1 year is recommended. An order for CT CHEST LOW DOSE CANCER SCREENING ([id number]) can be placed. Electronically signed by: Anand Odell MD 07/31/2024 04:28 PM [facility] [place]
== END 2024-05-15 09:31 | disposition home or self-care (01) ==
LOC: HO.CT 09:30
PROVIDERS: PCP Family Medicine; Visit Provider Physician Assistant Medical
DX: Z12.2 Encounter for screening for malignant neoplasm of respiratory organs (principal); Z87.891 Personal history of nicotine dependence
CPT/HCPCS: 71271; G0296

== ENCOUNTER 2025-01-13 10:32 | Outpatient (REF) | payer MEDICARE, SELFPAY ==
[2025-01-13 10:51] LABS: MANUAL DIFF FLAG NO
[2025-01-13 11:38] LABS: Basophils Absolute Auto 0.1 X10*3/uL (0.0-0.2); Basophils Percent Auto 1.8 % (0-2); Eosinophils Absolute Auto 0.2 X10*3/uL (0.0-0.4); Eosinophils Percent Auto 4.3 % (0-4); Hematocrit 43.2 % (42.0-52.0); Hemoglobin 14.4 g/dl (14.0-18.0); Imm Gran Abs Auto 0.01 X10*3/uL (0.00-0.03); Imm Gran Pct Auto 0.2 % (0.0-0.4); Lymphocytes Absolute Auto 2.9 X10*3/uL (1.2-4.9); Lymphocytes Percent Auto 50.8 % (20-40); Mean Corpuscular HGB Conc 33.3 g/dl (31.0-36.0); Mean Platelet Volume 11.1 fL (9.4-12.4); Monocytes Absolute Auto 0.7 X10*3/uL (0.1-1.2); Monocytes Percent Auto 11.6 % (2-11); Neutrophils Absolute Auto 1.8 x10*3/uL (2.0-8.3); Neutrophils Percent Auto 31.3 % (45-73); Platelet Count 232 X10*3/uL (160-400); Red Cell Distribution Width 12.7 % (11.0-16.0); White Blood Count 5.6 X10*3/uL (4.8-10.8)
--- OUTSIDE RECORDS SUMMARY | 2025-01-13 12:02 | XMS_ITS | Patient Health Record ---
Author Organization [facility] Address [address] [place] [address] Care Team Providers Care Ethnic Studies Professor Name Role Phone Rony Domínguez MD Primary Care Provider UnavailVineet Brunner Unavailable [phone] Allergies No Known Allergies Reason For Referral No Information Medications Medication SIG (Take, Route, Frequency, Duration) Notes Start Date End Date Status MiraLax (colon prep) 17 GM/SCOOP 1 238 Gm bottle mixed with Gatorade or Crystal Light Orally begin at 5:00 p.m. the day before the procedure for 1 day 09/02/2022 Active Lisinopril 10 MG 1 tablet Orally Once a day for 30 day(s) Active dilTIAZem HCl ER 240 MG 1 capsule Orally Once a day for 30 day(s) Active Aspir-81 81 MG 1 tablet Orally Once a day Active Dulcolax (colon prep) 5 MG take at 3:00 p.m and 7:00p.m. Orally two tablets twice a day for one day for 1 day 09/02/2022 Active Multivitamin Active traZODone HCl 50 MG 1 tablet at bedtime as needed Orally Once a day for 30 day(s) Active Vitamin D Active Immunizations Vaccine Route Administration Date Status Comme nts Influenza Unknown 04/26/2017 Administered Influenza Unknown 04/26/2022 Administered Social History Tobacco Use: Social History Observation Description Date Details (start date - stop date) Never Smoker NA - NA Tobacco Use/Smoking Question Answer Notes Patient is a nonsmoker Alcohol Screen Question Answer Notes Did you have a drink contain ing alcohol in the past year? Yes How often did you have a dri nk containing alcohol in the past year? 2 to 3 times a week (3 points) How many drinks did you have on a typical day when you were drinking in the past year? 7 to 9 drinks (3 points) Points 6 Interpretation Positive Section Notes: Nonsmoker; drinks beers on t he weekends--none during the week Nonsmoker; drinks a few beer s on the weekends--none during the week Problems Problem Type SNOMED Code ICD Code Onset Dates Problem Status W/U Status Risk Notes Problem 285470798 Colon cancer screening (Z12.11) Active confirmed Problem 786295773 Encounter for screening for malignant neoplasm of colon (Z12.11) Active confirmed Problem 474374546 History of adenomatous polyp of colon (Z86.010) Active confirmed Problem History of polyp of colon (466388674) History of colon polyps (Z86.010) Active confirmed Problem 823504278 Long-term use of aspirin therapy (Z79.82) Active confirmed Problem 40602484 Constipation, unspecified constipation type (K59.00) Active confirmed Problem Diverticulosis of colon (034046708) Diverticulosis of colon (K57.30) Active confirmed Plan Of Treatment Future Test Test Name Order Date COLONOSCOPY 08/28/2022 Insurance Providers Payer Name Payer Address Payer Phone Subscriber Number Group Number Insured Name Patient Relationship to Insured Coverage Start Date Coverage End Date [facility] [address] [address] [place] [address] [phone] [id number] DOMINGO ANDREW Self - patient is the insured MEDICARE OF [place] [address] [place] [id number] DOMINGO ANDREW Self - patient is the insured Medical (General) History Medical History History ICD Code Denies MS,DM,CVA,Lung disease,renal dise ase Colonoscopy in 07/2007--hype rplastic polyp, sigmoid diverticulosis, internal hemorrhoids Hypertension Colonoscopy 03/2018 with a small tubular adenoma Surgical History Surgery Date(Month/Year)
[2025-01-13 14:59] LABS: Anion Gap 12 (12-20); Blood Urea Nitrogen 13 mg/dL (9-16); Carbon Dioxide 24 mmol/L (22-29); Chloride 106 mmol/L (96-108); Estimated Glomerular Filt Rate 58; Potassium 4.2 mmol/L (3.3-5.1); Sodium 138 mmol/L (135-145)
== END 2025-01-13 10:33 | disposition home or self-care (01) ==
LOC: HO.LAB 10:32
PROVIDERS: PCP Family Medicine; Visit Provider Family Medicine
DX: I10 Essential (primary) hypertension (principal); D72.819 Decreased white blood cell count, unspecified
CPT/HCPCS: 36415; 80051; 82565; 84520; 85025

== ENCOUNTER 2025-04-19 08:54 | Outpatient (REF) | payer MEDICARE, SELFPAY ==
--- NOTE | ~2025-04-19 | XR_ITS ---
EXAMINATION: XR CHEST CLINICAL INFORMATION: R07.89 - Other chest pain COMPARISON: February 11, 2024 TECHNIQUE: 2 views of the chest were obtained. FINDINGS: Again seen is fine linear density in the lateral left lung base. Lungs are clear otherwise. Heart size is within normal limits. Mediastinal structures are unremarkable. There is no sign of pleural effusion. Flowing osteophytes or syndesmophytes are seen in the thoracic spine. XR/XR chest 2V IMPRESSION: Minimal left basilar atelectasis or scarring is stable. Changes in thoracic spine are consistent with ankylosing spondylitis or less likely diffuse idiopathic skeletal hyperostosis (DISH). Electronically signed by: Terrance Benson MD 04/19/2025 10:22 AM EDT
== END 2025-04-19 08:55 | disposition home or self-care (01) ==
LOC: HO.XRAY 08:54
PROVIDERS: PCP Physician Assistant; Visit Provider Physician Assistant
DX: R07.89 Other chest pain (principal); I12.9 Hypertensive chronic kidney disease with stage 1 through stage 4 chronic kidney disease, or unspecified chronic kidney disease; N18.30 Chronic kidney disease, stage 3 unspecified; J44.9 Chronic obstructive pulmonary disease, unspecified; K75.81 Nonalcoholic steatohepatitis (NASH); N40.0 Benign prostatic hyperplasia without lower urinary tract symptoms; E78.5 Hyperlipidemia, unspecified
CPT/HCPCS: 71046; 99202

== ENCOUNTER 2025-04-19 08:54 | Outpatient (AMB) | payer MEDICARE, SELFPAY ==
--- NOTE | 2025-04-19 09:04 | MHC.PC.OV ---
Vital Signs 04/19/25 09:09 04/19/25 09:35 Height 5 ft 10 in Weight 109.316 kg BMI 34.6 BP 156/74 H 150/70 H Pulse 65 Pulse Source Pulse Oximeter Temp 97.5 F Temp Source Temporal Artery Scan Pulse Oximetry (%) 96 Intake Visit Reasons: 3 MONTH FOLLOW UP- JOVANNA PT Data Collection Interviewer Required: No Accompanied by: Daughter Allergies No Known Allergies (No Known Allergies*) Allergy (Verified 04/19/25 09:06) Tobacco use date assessed: 04/19/25 Fall risk assessment: No Falls in past year Last assessed Fall Risk: 04/19/25 Dental Screening Dental Screen Date: 04/19/25 Did you have a dental visit in the last 12 months?: Yes Did you have a dental problem in the last 6 months where you did not have access to dental care?: No Was dental information given to patient?: No HPI HPI Comments History of Present Illness Details 74-year-old male with history of GERD, venous insufficiency, BPH, hypercholesterolemia, hypertension, COPD, Lopez, obesity presents to the office today for management of chronic conditions and to establish care. Here with daughter Mady. Hypertension-blood pressure in the office today 156/74 and 150/70 on recheck. Reports blood pressures are normal at home. He is somewhat anxious. Compliant with diltiazem, lisinopril Hyperlipidemia-not on statin BPH-stable, not on medication. Last PSA elevated CKD stage 3-GFR 58 Concerns: Chest tightness ongoing 2 weeks. Not pleuritic. No radiation. Feels like gas stuck. No dysphagia. Has dry cough. No heartburn. Does take prilosec. Worse when laying back, but not at night. No chest pressure, sob, lightheadedness. Intermittent, resolves spontaneously. Not related to food. Health maintenance: Due for PSA Last colonoscopy 09/2022 with 5 year follow-up advised due to tubular adenoma. Dr. Delatorre ROS: General: No fevers, malaise, unintentional weight loss HEENT: No blurred vision, diplopia. No sore throat, nasal congestion, rhinorrhea, sinus pain, ear pain Cardiovascular: No chest pain, palpitations, or leg edema Respiratory: No shortness of breath, wheezing, cough GI: No abdominal pain, nausea, vomiting, diarrhea, constipation, melena, hematochezia : No dysuria, hematuria, increased urinary frequency, decreased urinary output MSK: No myalgia, back pain Neuro: No headaches, weakness, paresthesias Skin: No rashes or lesions EXAM: Constitutional - Awake and Alert, No apparent distress Eyes - PERRL Cardiovascular - S1S2, RRR, No edema Respiratory - Normal lung expansion, Normal respiratory effort, No respiratory distress, CTA bilaterally Extremities - no calf tenderness bilaterally, no swelling Skin - Warm/Dry Neurological - Alert & oriented x3 Psychological - Appropriate affect PFSH Medical History (Updated 04/19/25 @ 09:41 by SAMMI Hearn) Chronic kidney disease, stage 3 Diverticulosis Hyperlipidemia LOPEZ (nonalcoholic steatohepatitis) Ventricular premature depolarization COPD (chronic obstructive pulmonary disease) Venous insufficiency HTN (hypertension) Personal history of nicotine dependence Tubular adenoma of colon Enlarged prostate History of COVID-19 Surgical History (Updated 04/15/25 @ 16:30 by Gisselle Swain) History of colonoscopy (~10/11/22) Social History (Updated 05/15/24 @ 09:31 by Narcisa Duffy PA-C) Housing: Other Housing Other:: Lives with daughter Alcohol intake: current Alcohol intake frequency: a few times a week Patient Tobacco Use Status: Former Tobacco user (Quite in 1999) Years Smoked: (onset 17yo, 1/2ppd x 47yrs, 23pyh - quit 2013) e-Cigarette/Vaping Use: Never Used service: No Current occupational status: retired Vision needs: Yes (Rx glasses) Physical exam (Primary Care) Vital Signs: Last Vital Signs Temp 97.5 F 04/19/25 09:09 Pulse 65 04/19/25 09:09 BP 156/74 H 04/19/25 09:09 Pulse Ox 96 04/19/25 09:09 BMI result Body Mass Index 34.6 Tobacco/Smoking Status: Tobacco use Status Tobacco use date assessed 04/19/25 04/19/25 09:10 Patient Tobacco Use Status Former Tobacco user (Quite 04/19/25 09:10 in 1999) e-Cigarette/Vaping Use Never Used 04/19/25 09:10 Coding Level of Care Code New Pt Level 4 (79784) Complex EM visit Add On G2211 Diagnoses HTN (hypertension) I10 COPD (chronic obstructive pulmonary disease) J44.9 LOPEZ (nonalcoholic steatohepatitis) K75.81 BPH (benign prostatic hyperplasia) N40.0 Hyperlipidemia E78.5 Chest tightness R07.89 Chronic kidney disease, stage 3 N18.30 Assessment & Plan Assessment & Plan (1) HTN (hypertension): Code(s): I10 - Essential (primary) hypertension Category: Medical Plan: Uncontrolled on recheck blood pressure 150/70. Reports blood pressures have been normal at home. Continue diltiazem 360 mg ER and lisinopril 10 mg daily. Advised to check blood pressures daily or every other day and returned to the office in 1-2 weeks for check (2) COPD (chronic obstructive pulmonary disease): Code(s): J44.9 - Chronic obstructive pulmonary disease, unspecified Category: Medical Plan: Stable. Continue monitoring (3) LOPEZ (nonalcoholic steatohepatitis): Code(s): K75.81 - Nonalcoholic steatohepatitis (LOPEZ) Category: Medical Plan: Liver panel ordered (4) BPH (benign prostatic hyperplasia): Code(s): N40.0 - Benign prostatic hyperplasia without lower urinary tract symptoms Category: Medical Plan: PSA ordered (5) Hyperlipidemia: Code(s): E78.5 - Hyperlipidemia, unspecified Category: Medical Plan: Lipid panel ordered. (6) Chest tightness: Code(s): R07.89 - Other chest pain Category: Medical Plan: Atypical. Low suspicion for cardiac etiology. We will check chest x-ray. Ibuprofen or Tylenol as needed. Recommend trialing doubling his omeprazole. (7) Chronic kidney disease, stage 3: Code(s): N18.30 - Chronic kidney disease, stage 3 unspecified Category: Medical Plan Follow-up in 1-2 weeks, labs to be completed following visit today as well as chest x-ray Orders: Orders Prostate Specific Antigen Today E78.5 - Hyperlipidemia, unspecified, I10 - Essential (primary) hypertension, K75.81 - Nonalcoholic steatohepatitis (LOPEZ), N40.0 - Benign prostatic hyperplasia without lower urinary tract symptoms XR chest 2V Today R07.89 - Other chest pain Basic Metabolic Panel Today E78.5 - Hyperlipidemia, unspecified, I10 - Essential (primary) hypertension, K75.81 - Nonalcoholic steatohepatitis (LOPEZ), N40.0 - Benign prostatic hyperplasia without lower urinary tract symptoms Lipid Panel Today E78.5 - Hyperlipidemia, unspecified, I10 - Essential (primary) hypertension, K75.81 - Nonalcoholic steatohepatitis (LOPEZ), N40.0 - Benign prostatic hyperplasia without lower urinary tract symptoms Liver Panel Today E78.5 - Hyperlipidemia, unspecified, I10 - Essential (primary) hypertension, K75.81 - Nonalcoholic steatohepatitis (LOPEZ), N40.0 - Benign prostatic hyperplasia without lower urinary tract symptoms Patient Instructions: Follow up in 1 week on chest tightness- any worsening or PRESSURE go to the ED. Try doubling omeprazole Labs and chest xray ordered Check BP's daily or every other day Ibuprofen or tylenol for pain
[2025-04-19 09:09] VITALS: BP 156/74; PULSE 65; TEMP 36.4; O2SAT 96; BMI 34.6
--- OUTSIDE RECORDS SUMMARY | 2025-04-19 09:31 | XMS_ITS | Patient Health Record ---
Author Organization [facility] Address [address] [place] [address] Care Team Providers Care Cupola Repairer Name Role Phone Sang (RETIRED) oRny PENDLETON Primary Care Provider Unavailable Vineet Delatorre Unavailable [phone] Allergies No Known Allergies Reason For Referral [...] Problem Status W/U Status Risk Notes Problem 581622015 Colon cancer screening (Z12.11) Active confirmed Problem 150868788 Encounter for screening for malignant neoplasm of colon (Z12.11) Active confirmed Problem 754380413 History of adenomatous polyp of colon (Z86.010) Active confirmed Problem History of polyp of colon (466603287) History of colon polyps (Z86.010) Active confirmed Problem 978873446 Long-term use of aspirin therapy (Z79.82) Active confirmed Problem 27181979 Constipation, unspecified constipation type (K59.00) Active confirmed Problem Diverticulosis of colon (756864701) Diverticulosis of colon (K57.30) Active confirmed Plan Of Treatment Future Test Test Name Order Date COLONOSCOPY 08/28/2022 Insurance Providers Payer Name Payer Address Payer Phone Subscriber Number Group Number Insured Name Patient Relationship to Insured Coverage Start Date Coverage End Date [facility] [address] [address] [place] [address] [id number] DOMINGO ANDREW Self - patient is the insured MEDICARE OF [place] [address] [place] [id number] DOMINGO ANDREW Self - patient is the insured Medical (General) History Medical History History ICD Code Denies CO,DM,CVA,Lung disease,renal dise ase Colonoscopy in 07/2007--hype rplastic polyp, sigmoid diverticulosis, internal hemorrhoids Hypertension Colonoscopy 03/2018 with a small tubular adenoma Surgical History Surgery Date(Month/Year)
--- OUTSIDE RECORDS SUMMARY | 2025-04-19 09:31 | XMS_ITS | Patient Health Record ---
Author [facility] Address [address] [place] [address] Care Team Providers Care Medical Apparatus Model Maker Name Role Phone Sang PENDLETON, Rony Primary Care Provider Unavailab Petr Ashraf Unavailable [phone] Reason For Referral No Information Medications Medication SIG (Take, Route, Frequency, Duration) Notes Start Date End Date Status Lactic Acid E 10-3500 %-UNT/30GM as directed Externally bid; Duration: 30 days 02/10/2013 Active Simvastatin 20 MG 1 tablet in the even ing Orally Once a day; Duration: 30 day(s) Active Problems Problem Type SNOMED Code ICD Code Onset Dates Problem Status W/U Status Risk Notes Problem Onychomycosis (395178218) Onychomycosis (110.1) Active confirmed Problem Pain in limb (97081582) Pain in Limb (729.5) Active confirmed Problem Disorder of sebaceous gland (0334986) Xerosis (706.8) Active confirmed Plan Of Treatment No Information Insurance Providers Payer Name Payer Address Payer Phone Subscriber Number Group Number Insured Name Patient Relationship to Insured Coverage Start Date Coverage End Date [facility] [address] [place] [address] [phone] [id number] Shaquille Andrew Self - patient is the insured Medical (General) History Medical History History ICD Code hypertension cholesterol
[2025-04-19 09:35] VITALS: BP 150/70
== END 2025-04-19 09:45 | disposition home or self-care (01) ==
LOC: HO.HMCHD 08:55
PROVIDERS: PCP Physician Assistant; Visit Provider Physician Assistant
DX: I10 Essential (primary) hypertension (principal); J44.9 Chronic obstructive pulmonary disease, unspecified; K75.81 Nonalcoholic steatohepatitis (NASH); N40.0 Benign prostatic hyperplasia without lower urinary tract symptoms; E78.5 Hyperlipidemia, unspecified; R07.89 Other chest pain; N18.30 Chronic kidney disease, stage 3 unspecified

== ENCOUNTER 2025-04-19 09:54 | Outpatient (REF) | payer MEDICARE, SELFPAY ==
[2025-04-19 11:24] LABS: Alanine Aminotransferase 30 U/L (0-40); Albumin Level 4.2 g/dL (3.5-5.0); Alkaline Phosphatase 82 U/L (39-117); Anion Gap 12 (12-20); Aspartate Amino Transferase 36 U/L (5-37); Blood Urea Nitrogen 14 mg/dL (9-16); Calcium 9.3 mg/dL (8.4-10.2); Carbon Dioxide 24 mmol/L (22-29); Chloride 106 mmol/L (96-108); Cholesterol 235 mg/dL (<200); Estimated Glomerular Filt Rate 55; HDL Cholesterol 40 mg/dL (>40); Potassium 4.0 mmol/L (3.3-5.1); Sodium 138 mmol/L (135-145); Total Protein 7.9 g/dL (6.5-8.0); Triglycerides 207 mg/dL (<150)
[2025-04-19 12:01] LABS: Prostate Specific Antigen 6.22 ng/mL (<0.05-4.0)
== END 2025-04-19 09:55 | disposition home or self-care (01) ==
LOC: HO.10HDL 09:54
PROVIDERS: Visit Provider Physician Assistant
DX: Z12.5 Encounter for screening for malignant neoplasm of prostate (principal); E78.5 Hyperlipidemia, unspecified; N40.0 Benign prostatic hyperplasia without lower urinary tract symptoms; K75.81 Nonalcoholic steatohepatitis (NASH); I10 Essential (primary) hypertension
CPT/HCPCS: 36415; 80048; 80061; 80076; 84153

== ENCOUNTER → 2025-04-19 10:05 | Outpatient (BNV) | payer MEDICARE, SELFPAY | PROVIDERS: PCP Physician Assistant; Visit Provider Radiology Diagnostic Radiology | DX: J98.11 Atelectasis (principal) | CPT/HCPCS: 71046 ==

== ENCOUNTER 2025-05-04 09:16 | Outpatient (AMB) | payer MEDICARE, SELFPAY ==
--- NOTE | 2025-05-04 09:19 | A.OFFPC_ITS ---
Vital Signs 05/04/25 09:22 Height 5 ft 10 in Weight 108.409 kg BMI 34.3 BP 134/70 Respiration 15 Pulse 69 Pulse Source Pulse Oximeter Temp 97.3 F Temp Source Temporal Artery Scan Pulse Oximetry (%) 94 Oxygen Delivery Method Room Air Intake Visit Reasons: 2 Week F/U - see comments Marine Service Operator Required: No Accompanied by: Self / Same As Patient Allergies No Known Allergies (No Known Allergies*) Allergy (Verified 05/04/25 09:21) Medication List - Last Reconciled 05/04/25 by SAMMI Hearn ascorbic acid (vitamin C) (Vitamin C) 250 mg PO BID aspirin 81 mg PO DAILY atorvastatin (Lipitor) 20 mg PO DAILY diltiazem HCl ER 360 mg PO DAILY lisinopril 10 mg PO DAILY multivitamin 1 tab PO DAILY omeprazole 20 mg PO DAILY Tobacco use date assessed: 04/19/25 Dental Screening Dental Screen Date: 04/19/25 HPI HPI Comments History of Present Illness Details 74-year-old male with history of GERD, v enous insufficiency, BPH, hypercholesterolemia, hypertension, COPD, Lopez, obesity presents to the office today for follow-up. Here with daughter Mady. Atypical chest pain-has been experiencing sternal chest pain ongoing for about 4 weeks. He reports the pain is reproducible when pushing on the sternum but otherwise is not bothersome. Not pleuritic. No radiation of the pain. He reported that he felt like gas with stuck so omeprazole was increased to 40 mg daily. However this has not improved his symptoms. No recent illness Hypertension-they have been checking blood pressures at home with SBP primarily in the 140s but up to 160. He has continued on lisinopril 10 mg daily as well as diltiazem 360 mg ER. He had been complaining of a dry cough. Discussed at last visit that we would trial increase in omeprazole to see if this resolved symptoms, however they persist. Hyperlipidemia-started on atorvastatin 20 mg daily with most recent labs following last visit. Tolerating well thus far. BPH-stable, not on medication. Elevated but stable. Asymptomatic. Not following with Urology CKD stage 3-GFR stable at 55 ROS: See HPI EXAM: Constitutional - Awake and Alert, No apparent distress Eyes - PERRL Cardiovascular - S1S2, RRR, No edema Respiratory - Normal lung expansion, Normal respiratory effort, No respiratory distress, CTA bilaterally Chest-reproducible tenderness to palpation over the sternum Extremities - no calf tenderness bilaterally, no swelling Skin - Warm/Dry Neurological - Alert & oriented x3 Psychological - Appropriate affect increase in omeprazole 40mg didnt help drinks 5 one day on the weekend.gets reflux then. PFSH Medical History (Updated 05/04/25 @ 09:53 by SAMMI Hearn) Elevated PSA Chronic kidney disease, stage 3 Diverticulosis Hyperlipidemia LOPEZ (nonalcoholic steatohepatitis) Ventricular premature depolarization COPD (chronic obstructive pulmonary disease) Venous insufficiency HTN (hypertension) Personal history of nicotine dependence Tubular adenoma of colon Enlarged prostate History of COVID-19 Surgical History (Updated 04/15/25 @ 16:30 by Gisselle Swain) History of colonoscopy (~10/11/22) Social History (Updated 05/15/24 @ 09:31 by Narcisa Duffy PA-C) Housing: Other Housing Other:: Lives with daughter Alcohol intake: current Alcohol intake frequency: a few times a week Patient Tobacco Use Status: Former Tobacco user (Quite in 1999) Years Smoked: (onset 17yo, 1/2ppd x 47yrs, 23pyh - quit 2013) e-Cigarette/Vaping Use: Never Used service: No Current occupational status: retired Vision needs: Yes (Rx glasses) Physical exam (Primary Care) Vital Signs: Last Vital Signs Temp 97.3 F 05/04/25 09:22 Pulse 69 05/04/25 09:22 Resp 15 05/04/25 09:22 BP 134/70 05/04/25 09:22 Pulse Ox 94 05/04/25 09:22 Oxygen Delivery Method Room Air 05/04/25 09:22 BMI result Body Mass Index 34.3 Tobacco/Smoking Status: Tobacco use Status Tobacco use date assessed 04/19/25 05/04/25 09:24 Patient Tobacco Use Status Former Tobacco user (Quite 05/04/25 09:24 in 1999) e-Cigarette/Vaping Use Never Used 05/04/25 09:24 Coding Level of Care Code Est Pt Level 4 (88583) Complex EM visit Add On G2211 Diagnoses Atypical chest pain R07.89 HTN (hypertension) I10 Hyperlipidemia E78.5 BPH (benign prostatic hyperplasia) N40.0 Elevated PSA R97.20 Assessment & Plan Assessment & Plan (1) Atypical chest pain: Code(s): R07.89 - Other chest pain Category: Medical Plan: Reproducible to palpation. Doubt cardiac in etiology. EKG at last visit was reassuring. Reports he has not overly bothered by this unless he pushes directly in the area. Can use low-dose ibuprofen as needed for pain (2) HTN (hypertension): Code(s): I10 - Essential (primary) hypertension Category: Medical Plan: Slightly elevated in the office. Dry cough likely related to lisinopril use. Decrease lisinopril and add losartan 25 mg daily. Continue diltiazem 360 mg ER. Contact the office in 2 weeks with blood pressure readings (3) Hyperlipidemia: Code(s): E78.5 - Hyperlipidemia, unspecified Category: Medical Plan: Continue atorvastatin 20 mg daily. Recheck lipid panel and liver panel in 2 weeks. Diet low in saturated fats and highly processed foods. (4) BPH (benign prostatic hyperplasia): Code(s): N40.0 - Benign prostatic hyperplasia without lower urinary tract symptoms Category: Medical Plan: Asymptomatic. PSA elevated but stable. Refer to Urology for further monitoring and evaluation (5) Elevated PSA: Code(s): R97.20 - Elevated prostate specific antigen [PSA] Category: Medical Plan: As above Plan Contact the office in 2 weeks for blood pressure readings. Follow up in 3 months. Labs to be completed as below in 2 weeks. Change lisinopril to losartan Orders: Orders Lipid Panel 2 Weeks E78.5 - Hyperlipidemia, unspecified Liver Panel 2 Weeks E78.5 - Hyperlipidemia, unspecified Medications: New losartan 25 mg PO DAILY 90 tabs 0RF omeprazole 20 mg PO DAILY 90 caps 1RF ibuprofen 400 mg PO Q8H PRN 30 tabs 0RF pain Patient Instructions: Call office in 2 weeks with BP readings Stop lisinopril. Start losartan 25mg daily Check labs in 05/21
[2025-05-04 09:22] VITALS: BP 134/70; PULSE 69; RESP 15; TEMP 36.3; O2SAT 94; BMI 34.3
--- OUTSIDE RECORDS SUMMARY | 2025-05-04 10:40 | XMS_ITS | Patient Health Record ---
[facility] Address [address] [place] [address] Care Team Providers Care Soil Conservation Teacher Name Role Phone Sang PENDLETON, Rony Primary Care Provider Unavailab Petr Ashraf Unavailable [phone] Reason For Referral No Information Medications Medication [...] Status W/U Status Risk Notes Problem Onychomycosis (232410047) Onychomycosis (110.1) Active confirmed Problem Pain in limb (14720505) Pain in Limb (729.5) Active confirmed Problem Disorder of sebaceous gland (6942620) Xerosis (706.8) Active confirmed Plan Of Treatment No Information Insurance Providers Payer Name Payer Address Payer Phone Subscriber Number Group Number Insured Name Patient Relationship to Insured Coverage Start Date Coverage End Date [facility] [address] [place] [address] [phone] [id number] Shaquille Andrew Self - patient is the insured Medical (General) History Medical History History ICD Code hypertension cholesterol
--- OUTSIDE RECORDS SUMMARY | 2025-05-04 10:41 | XMS_ITS | Patient Health Record ---
Author Organization [facility] Address [address] [place] [address] Care Team Providers Care Business Instructor Name Role Phone Sang (RETIRED) Rony PENDLETON Primary Care Provider Unavailable Vineet Delatorre Unavailable [phone] Allergies No Known Allergies Reason For Referral [...] Problem Status W/U Status Risk Notes Problem 822084615 Colon cancer screening (Z12.11) Active confirmed Problem 611151264 Encounter for screening for malignant neoplasm of colon (Z12.11) Active confirmed Problem 578225413 History of adenomatous polyp of colon (Z86.010) Active confirmed Problem History of polyp of colon (304044635) History of colon polyps (Z86.010) Active confirmed Problem 639136126 Long-term use of aspirin therapy (Z79.82) Active confirmed Problem 35709796 Constipation, unspecified constipation type (K59.00) Active confirmed Problem Diverticulosis of colon (616727581) Diverticulosis of colon (K57.30) Active confirmed Plan Of Treatment Future Test Test Name Order Date COLONOSCOPY 08/28/2022 Insurance Providers Payer Name Payer Address Payer Phone Subscriber Number Group Number Insured Name Patient Relationship to Insured Coverage Start Date Coverage End Date [facility] [address] [address] [place] [address] [id number] DOMINGO ANDREW Self - patient is the insured MEDICARE OF [place] [address] [place] [id number] [phone] [id number] DOMINGO ANDREW Self - patient is the insured Medical (General) History Medical History History ICD Code Denies [place],DM,CVA,Lung disease,renal dise ase Colonoscopy in 07/2007--hype rplastic polyp, sigmoid diverticulosis, internal hemorrhoids Hypertension Colonoscopy 03/2018 with a small tubular adenoma Surgical History Surgery Date(Month/Year)
== END 2025-05-04 09:53 | disposition home or self-care (01) ==
LOC: HO.HMCHD 09:17
PROVIDERS: PCP Physician Assistant; Visit Provider Physician Assistant
DX: R07.89 Other chest pain (principal); I10 Essential (primary) hypertension; E78.5 Hyperlipidemia, unspecified; N40.0 Benign prostatic hyperplasia without lower urinary tract symptoms; R97.20 Elevated prostate specific antigen [PSA]

== ENCOUNTER → 2025-05-04 09:16 | Outpatient (BNVA) | payer MEDICARE, SELFPAY | PROVIDERS: PCP Physician Assistant; Visit Provider Physician Assistant | DX: R07.89 Other chest pain (principal); I10 Essential (primary) hypertension; E78.5 Hyperlipidemia, unspecified; N40.0 Benign prostatic hyperplasia without lower urinary tract symptoms; R97.20 Elevated prostate specific antigen [PSA]; Z79.899 Other long term (current) drug therapy | CPT/HCPCS: 99212 ==

== ENCOUNTER 2025-05-21 15:50 | Outpatient (REF) | payer MEDICARE, SELFPAY ==
--- OUTSIDE RECORDS SUMMARY | 2025-05-21 16:08 | XMS_ITS | Patient Health Record ---
Author Organization [facility] Address [address] [place] [address] Care Team Providers Care Digital Marketing Assistant Name Role Phone Sang PENDLETON, Rony Primary Care Provider Unavailab Petr Ashraf Unavailable [phone] Reason For Referral No Information Medications Medication [...] Problem Status W/U Status Risk Notes Problem Information temporarily unavailable Onychomycosis (110.1) Active confirmed Problem Information temporarily unavailable Pain in Limb (729.5) Active confirmed Problem Information temporarily unavailable Xerosis (706.8) Active confirmed Plan Of Treatment No Information Insurance Providers Payer Name Payer Address Payer Phone Subscriber Number Group Number Insured Name Patient Relationship to Insured Coverage Start Date Coverage End Date [facility] [address] [place] [address] [id number] Shaquille Andrew Self - patient is the insured Medical (General) History Medical History History ICD Code hypertension cholesterol
--- OUTSIDE RECORDS SUMMARY | 2025-05-21 16:08 | XMS_ITS | Patient Health Record ---
Author Organization [facility] Address [address] [place] [address] Care Team Providers Care Top Stitcher Name Role Phone Sang (RETIRED) Rony PENDLETON Primary Care Provider Unavailable Vineet Delatorre Unavailable [phone] Allergies No Known Allergies Reason For Referral [...] Problem Status W/U Status Risk Notes Problem 691414513 Colon cancer screening (Z12.11) Active confirmed Problem 872221595 Encounter for screening for malignant neoplasm of colon (Z12.11) Active confirmed Problem 913707002 History of adenomatous polyp of colon (Z86.010) Active confirmed Problem History of polyp of colon (152015684) History of colon polyps (Z86.010) Active confirmed Problem 344726782 Long-term use of aspirin therapy (Z79.82) Active confirmed Problem 23768400 Constipation, unspecified constipation type (K59.00) Active confirmed Problem Diverticulosis of colon (083443978) Diverticulosis of colon (K57.30) Active confirmed Plan Of Treatment Future Test Test Name Order Date COLONOSCOPY 08/28/2022 Insurance Providers Payer Name Payer Address Payer Phone Subscriber Number Group Number Insured Name Patient Relationship to Insured Coverage Start Date Coverage End Date [facility] [address] [address] [place] [address] [id number] DOMINGO ANDREW Self - patient is the insured MEDICARE OF [place] [address] [place] [id number] DOMINGO ANDREW Self - patient is the insured Medical (General) History Medical History History ICD Code Denies [place],DM,CVA,Lung disease,renal dise ase Colonoscopy in 07/2007--hype rplastic polyp, sigmoid diverticulosis, internal hemorrhoids Hypertension Colonoscopy 03/2018 with a small tubular adenoma Surgical History Surgery Date(Month/Year)
== END 2025-05-21 15:51 | disposition home or self-care (01) ==
LOC: HO.CT 15:50
PROVIDERS: PCP Physician Assistant; Visit Provider Physician Assistant Medical
DX: Z12.2 Encounter for screening for malignant neoplasm of respiratory organs (principal); Z87.891 Personal history of nicotine dependence
CPT/HCPCS: 71271

== ENCOUNTER → 2025-05-21 15:55 | Outpatient (BNV) | payer MEDICARE, SELFPAY | PROVIDERS: PCP Physician Assistant; Visit Provider Specialist | DX: Z87.891 Personal history of nicotine dependence (principal) | CPT/HCPCS: 71271 ==

== ENCOUNTER 2025-06-01 14:22 | Outpatient (AMB) | payer MEDICARE, SELFPAY ==
--- NOTE | 2025-06-01 14:45 | MHC.OFFVIS ---
Intake Visit Reasons: Elevated PSA Intake Note: New patient presents today for initial visit for elevated PSA Urology Medication:None Blood Thinner:Aspirin Antibiotic Allergies:None Allergies No Known Allergies (No Known Allergies*) Allergy (Verified 06/01/25 14:45) HPI Comments Details: Shaquille is a pleasant Libyan-speaking male. He is a patient of Dr. Shannon. He is seen for the following urologic conditions - elevated PSA - lower urinary tract symptoms Libyan translation provided by daughter who was comfortable in this capacity Notes weakness of stream Nocturia x2 PSA 10/18 6.7, 04/19 6.2 Current PSA in line with historic Does have imaging suggestive of enlarged prostate Trial finasteride and repeat bladder ultrasound for prostate size estimate PFSH Medical History Elevated PSA Chronic kidney disease, stage 3 Diverticulosis Hyperlipidemia FOREMAN (nonalcoholic steatohepatitis) Ventricular premature depolarization COPD (chronic obstructive pulmonary disease) Venous insufficiency HTN (hypertension) Personal history of nicotine dependence Tubular adenoma of colon Enlarged prostate History of COVID-19 Surgical History History of colonoscopy (~10/11/22) Social History Housing: Other Housing Other:: Lives with daughter Alcohol intake: current Alcohol intake frequency: a few times a week Patient Tobacco Use Status: Former Tobacco user (Quite in 1999) Years Smoked: (onset 17yo, 1/2ppd x 47yrs, 23pyh - quit 2013) e-Cigarette/Vaping Use: Never Used service: No Current occupational status: retired Vision needs: Yes (Rx glasses) Review of Systems Const Denies chills and Denies fever(s) Card Reports no additional complaints and Denies syncope Resp Denies cough GI Denies abdominal pain and Denies heartburn Reports as per HPI and Denies change in libido Neuro Denies syncope Psych Denies change in libido Endo Denies change in libido Physical Exam Const General: cooperative, healthy appearing, comfortable and no acute distress Orientation/consciousness: patient oriented x3 HEENT Face and sinus: Yes normal facial exam Mouth: moist mucous membranes Neck Neck: Yes normal visual inspection, Yes full ROM and Yes trachea midline Chest Chest palpation & inspection: normal inspection of the chest Resp Effort & Inspection: normal respiratory effort, able to speak in complete sentences and no respiratory distress GI Inspection: Yes normal to inspection Back/Spine/Pelvis Cervical Spine: normal cervical lordosis Thoracic/Lumbar Spine: thoracic and lumbar spine normal to inspection Skin General skin exam: no rashes or lesions noted Neuro General: patient oriented x3, gait normal, tone normal and moves all extremities Extrem General: Yes normal to inspection and Yes capillary refill normal Assessment & Plan Assessment & Plan (1) Elevated PSA: Code(s): R97.20 - Elevated prostate specific antigen [PSA] Category: Medical (2) BPH (benign prostatic hyperplasia): Code(s): N40.0 - Benign prostatic hyperplasia without lower urinary tract symptoms Category: Medical Plan Trial finasteride Bladder ultrasound Four month follow-up PSA Orders: Orders US bladder Today N40.0 - Benign prostatic hyperplasia without lower urinary tract symptoms PSA,Total (Free>4and<10) 4 Months N40.0 - Benign prostatic hyperplasia without lower urinary tract symptoms Medications: New finasteride 5 mg PO DAILY 90 tabs 1RF 90 days N40.0 - Benign prostatic hyperplasia without lower urinary tract symptoms Patient Instructions: This note is constructed using voice recognition software. While every effort has been made to ensure accuracy junior accounting clerk errors may have been included. Imaging studies, laboratory and physical exam results were discussed and reviewed in detail. No major barriers to patient understanding were identified. An opportunity to ask questions regarding the treatment plan was provided. All questions were answered. The patient expressed understanding and agreement with the above treatment plan. The patient is aware they should contact our office by phone for worsening of their current condition or the appearance of new urologic symptoms. Compliance is encouraged with any medications and followup testing that is ordered. It is a privilege to participate in the urologic care of your patient. If you have any questions or concerns regarding treatment for the above conditions, or other urologic issues, please do not hesitate to contact me. The office telephone contact is [phone]. Sincerely, Dr Manjeet Aguilar MD, DOMINGO [facility] - Urology Compassionate Specialist Care for the Genitourinary System Coding Level of Care Code New Pt Level 4 (45863) Diagnoses Elevated PSA R97.20 BPH (benign prostatic hyperplasia) N40.0
--- OUTSIDE RECORDS SUMMARY | 2025-06-01 17:43 | XMS_ITS | Patient Health Record ---
Author Organization [facility] Address [address] [place] [address] Care Team Providers Care Rehab Trainer Name Role Phone Sang (RETIRED) Rony PENDLETON Primary Care Provider Unavailable Vineet Delatorre Unavailable [phone] Allergies No Known Allergies Reason For Referral [...] Problem Status W/U Status Risk Notes Problem 947001300 Colon cancer screening (Z12.11) Active confirmed Problem 440567722 Encounter for screening for malignant neoplasm of colon (Z12.11) Active confirmed Problem 829652527 History of adenomatous polyp of colon (Z86.010) Active confirmed Problem History of polyp of colon (572889316) History of colon polyps (Z86.010) Active confirmed Problem 782626201 Long-term use of aspirin therapy (Z79.82) Active confirmed Problem 62832274 Constipation, unspecified constipation type (K59.00) Active confirmed Problem Diverticulosis of colon (504819288) Diverticulosis of colon (K57.30) Active confirmed Plan Of Treatment Future Test Test Name Order Date COLONOSCOPY 08/28/2022 Insurance Providers Payer Name Payer Address Payer Phone Subscriber Number Group Number Insured Name Patient Relationship to Insured Coverage Start Date Coverage End Date [facility] [address] [address] [place] [address] [phone] [id number] DOMINGO ANDREW Self - patient is the insured MEDICARE OF [place] [address] [place] [id number] DOMINGO ANDREW Self - patient is the insured Medical (General) History Medical History History ICD Code Denies [place],DM,CVA,Lung disease,renal dise ase Colonoscopy in 07/2007--hype rplastic polyp, sigmoid diverticulosis, internal hemorrhoids Hypertension Colonoscopy 03/2018 with a small tubular adenoma Surgical History Surgery Date(Month/Year)
== END 2025-06-01 15:16 | disposition home or self-care (01) ==
PROVIDERS: PCP Physician Assistant; Visit Provider Urology
DX: R97.20 Elevated prostate specific antigen [PSA] (principal); N40.0 Benign prostatic hyperplasia without lower urinary tract symptoms; Z13.9 Encounter for screening, unspecified
CPT/HCPCS: 99204

== ENCOUNTER → 2025-06-01 14:22 | Outpatient (BNVA) | payer MEDICARE, SELFPAY | PROVIDERS: PCP Physician Assistant; Visit Provider Urology | DX: N40.0 Benign prostatic hyperplasia without lower urinary tract symptoms (principal); R97.20 Elevated prostate specific antigen [PSA] | CPT/HCPCS: 81003; 99202 ==

== ENCOUNTER 2025-08-09 15:38 | Outpatient (AMB) | payer MEDICARE, SELFPAY ==
[2025-08-09 15:46] VITALS: BP 138/82; PULSE 65; TEMP 36.6; O2SAT 96; BMI 35.4
--- NOTE | 2025-08-09 15:46 | A.OFFPC_ITS ---
Vital Signs 08/09/25 15:46 08/09/25 16:14 Height 5 ft 10 in Weight 112.037 kg BMI 35.4 BP 138/82 148/88 H Blood Pressure Location Lt brachial Position Sitting Pulse 65 Pulse Source Pulse Oximeter Temp 97.8 F Temp Source Temporal Artery Scan Pulse Oximetry (%) 96 Oxygen Delivery Method Room Air Intake Visit Reasons: f/u before going away. Automation And Controls Manager Required: Yes Automation And Controls Manager Name: pt daughter Accompanied by: Daughter Allergies No Known Allergies (No Known Allergies*) Allergy (Verified 08/09/25 15:46) Medication List - Last Reconciled 08/09/25 by SAMMI Hearn ascorbic acid (vitamin C) (Vitamin C) 250 mg PO BID aspirin 81 mg PO DAILY atorvastatin (Lipitor) 20 mg PO DAILY diltiazem HCl ER 360 mg PO DAILY finasteride 5 mg PO DAILY 90 days ibuprofen 400 mg PO Q8H PRN losartan 50 mg PO DAILY multivitamin 1 tab PO DAILY omeprazole 20 mg PO DAILY Tobacco use date assessed: 08/09/25 Fall risk assessment: No Falls in past year Last assessed Fall Risk: 08/09/25 Dental Screening Dental Screen Date: 08/09/25 Did you have a dental visit in the last 12 months?: Yes Did you have a dental problem in the last 6 months where you did not have access to dental care?: No HPI HPI Comments History of Present Illness Details 74-year-old male with history of GERD, v enous insufficiency, BPH, hypercholesterolemia, hypertension, COPD, Lopez, obesity presents to the office today for follow-up. Here with daughter Mady who assists with translation Hypertension- Lisinopril changed to losartan 25mg at last visit due to dry cough which has now resolved. Continues on diltiazem 360mg ER. No cp, sob, lightheadedness, headaches or vision changes Hyperlipidemia-started on atorvastatin 20 mg daily with most recent labs following last visit. Tolerating well thus far. BPH-stable, not on medication. PSA elevated but stable. Asymptomatic. Saw urology and will be following annually. CKD stage 3-GFR stable at 55 Concerns: None ROS: See HPI EXAM: Constitutional - Awake and Alert, No apparent distress Eyes - PERRL Cardiovascular - S1S2, RRR, No edema Respiratory - Normal lung expansion, Normal respiratory effort, No respiratory distress, CTA bilaterally Extremities - no calf tenderness bilaterally, no swelling Skin - Warm/Dry Neurological - Alert & oriented x3 Psychological - Appropriate affect PFSH Medical History Elevated PSA Chronic kidney disease, stage 3 Diverticulosis Hyperlipidemia LOPEZ (nonalcoholic steatohepatitis) Ventricular premature depolarization COPD (chronic obstructive pulmonary disease) Venous insufficiency HTN (hypertension) Personal history of nicotine dependence Tubular adenoma of colon Enlarged prostate History of COVID-19 Surgical History History of colonoscopy (~10/11/22) Family History (Updated 08/09/25 @ 16:04 by Ramila Kowalski MA) Mother No problems noted. Father No problems noted. Social History Housing: Other Housing Other:: Lives with daughter Alcohol intake: current Alcohol intake frequency: a few times a week Patient Tobacco Use Status: Former Tobacco user (Quite in 1999) Years Smoked: (onset 17yo, 1/2ppd x 47yrs, 23pyh - quit 2013) e-Cigarette/Vaping Use: Never Used service: No Current occupational status: retired Cognitive needs: No Hearing needs: No Vision needs: Yes (Rx glasses) Questionnaire PHQ-9 Over the last 2 weeks, how often have you been bothered by any of the following problems? 1. Little interest or pleasure in doing things: not at all 2. Feeling down, depressed, or hopeless: not at all 3. Trouble falling or staying asleep, or sleeping too much: not at all 4. Feeling tired or having little energy: not at all 5. Poor appetite or overeating: not at all 6. Feeling bad about yourself - or that you are a failure or have let yourself or your family down: not at all 7. Trouble concentrating on things, such as reading the newspaper or watching television: not at all 8. Moving or speaking so slowly that other people could have noticed. Or the opposite - being so fidgety or restless that you have been moving around a lot more than usual: not at all 9. Thoughts that you would be better off or of hurting yourself in some way: not at all Total score: 0 Depression Screening Interpretation: Negative Depression Screening Done: Yes Source: Developed by Drs. Vineet Lehman, Giovana Beltran, Broderick Kirkland and colleagues, with an educational sandra from [employer]. Thrive Questionnaire Date Thrive assessed: 08/09/25 I am a: Patient Within the past 12 months, did the food you bought not last and you didn't have the money to get more?: Never true Within the past 12 months, did you worry whether your food would run out before you got money to buy more?: Never true Do you have trouble paying for medicines?: No Do you have trouble getting transportation to medical appointments?: No Do you have trouble paying your heating and electricity bill?: No Do you have trouble taking care of your child, family member or friend?: No Do you have trouble with day-to-day activities such as bathing, preparing meals, shopping, managing finances, etc.?: No Are you currently unemployed and looking for a job?: No Are you interested in more education?: No THRIVE Score: 0 AUDIT C Alcohol Use Questionnaire (AUDIT-C) 1. How often do you have a drink containing alcohol?: Never 3. How often do you have six or more drinks on one occasion?: Never Total Score: 0 DAWSON-7 AMB Questionnaire DAWSON-7 Date DAWSON - 7 assessed: 08/09/25 Feeling nervous, anxious, or on edge: 0 = Not at all Not being able to stop or control worryin = Not at all Worrying too much about different things: 0 = Not at all Trouble relaxin = Not at all Being so restless that it is hard to sit still: 0 = Not at all Becoming easily annoyed or irritable: 0 = Not at all Feeling afraid as if something awful might happen: 0 = Not at all Total DAWSON-7 score (0-4 normal; 5-9 mild; 10-14 moderate; 15-21 severe): 0 Source: Developed by Drs. Vineet Lehman, Broderick No and colleagues, with an educational sandra from [employer]. Physical exam (Primary Care) Vital Signs: Last Vital Signs Temp 97.8 F 08/09/25 15:46 Pulse 65 08/09/25 15:46 BP 148/88 H 08/09/25 16:14 Pulse Ox 96 08/09/25 15:46 Oxygen Delivery Method Room Air 08/09/25 15:46 BMI result Body Mass Index 35.4 Tobacco/Smoking Status: Tobacco use Status Tobacco use date assessed 08/09/25 08/09/25 15:47 Patient Tobacco Use Status Former Tobacco user (Quite 08/09/25 15:47 in 1999) e-Cigarette/Vaping Use Never Used 08/09/25 15:47 PHQ-9: PHQ-9 Score PHQ-9: Total score 0 08/09/25 16:07 Depression Screening Interpretation: Negative Thrive Assessment: Date of Thrive Assessment Date Thrive assessed 08/09/25 08/09/25 15:47 Coding Level of Care Code Est Pt Level 4 (11969) Add On Problem Visit Only Diagnoses HTN (hypertension) I10 Hyperlipidemia E78.5 BPH (benign prostatic hyperplasia) N40.0 Assessment & Plan Assessment & Plan (1) HTN (hypertension): Code(s): I10 - Essential (primary) hypertension Category: Medical Plan: Uncontrolled. Increase losartan to 50mg daily. Pt is leaving for [place] Saturday and will not be able to present for follow up. He will check blood pressures at home and contact the office if these remain elevated above 140/90. Low sodium diet (2) Hyperlipidemia: Code(s): E78.5 - Hyperlipidemia, unspecified Category: Medical Plan: Continue atorvastatin 20 mg daily. Recheck lipid panel and liver panel. Diet low in saturated fats and highly processed foods. (3) BPH (benign prostatic hyperplasia): Code(s): N40.0 - Benign prostatic hyperplasia without lower urinary tract symptoms Category: Medical Plan: Asymptomatic. PSA elevated but stable. Continue following with urology as scheduled. Plan Follow up in the office in 6 months. Labs as ordered. Medications: New losartan 50 mg PO DAILY 90 tabs 1RF Discontinued losartan Discontinued Reason: Doctor's Order 25 mg PO DAILY 90 tabs 0RF
[2025-08-09 16:14] VITALS: BP 148/88
--- OUTSIDE RECORDS SUMMARY | 2025-08-09 22:08 | XMS_ITS | Patient Health Record ---
Author Organization [facility] Address [address] [place] [address] Care Team Providers Care Security Systems Integrator Name Role Phone Sang (RETIRED) Rony PENDLETON Primary Care Provider Unavailable Vineet Delatorre Unavailable [phone] Allergies No Known Allergies Reason For Referral No Information Medications Medication SIG (Take, Route, Frequency, Duration) Notes Start Date End Date Status MiraLax (colon prep) 17 GM/SCOOP Powder 1 238 Gm bottle mixed with Gatorade or Crystal Light Orally begin at 5:00 p.m. the day before the procedure; Duration: 1 day 09/02/2022 Active Lisinopril 10 MG Tablet 1 tablet Orally Once a day; Duration: 30 day(s) Active dilTIAZem HCl ER 240 MG Capsule Extended Release 24 Hour 1 capsule Orally Once a day; Duration: 30 day(s) Active Aspir-81 81 MG Tablet Delayed Release 1 tablet Orally Once a day Active Dulcolax (colon prep) 5 MG Tablet Delayed Release take at 3:00 p.m and 7:00p.m. Orally two tablets twice a day for one day; Duration: 1 day 09/02/2022 Active Multivitamin Active traZODone HCl 50 MG Tablet 1 tablet at b edtime as needed Orally Once a day; Duration: 30 day(s) Active Vitamin D Active Immunizations Vaccine Route Administration Date Status Comme nts Influenza Unknown 04/26/2017 Administered Influenza Unknown 04/26/2022 Administered Social History Tobacco Use: Social History Observation Description Date Details (start date - stop date) Never Smoker NA - NA Social History Drugs/Alcohol: Social Info Question Answer Notes Alcohol Screen Did you have a drink containing alcohol in the past year? Yes How often did you have a drink containing alcohol in the past year? 2 to 3 times a week (3 points) How many drinks did you have on a typical day when you were drinking in the past year? 7 to 9 drinks (3 points) Points 6 Interpretation Positive Tobacco Use: Social Info Question Answer Notes Tobacco Use/Smoking Patient is a nonsmoker Additional Details Category Social Info Options Details Miscellaneous: Marital status: Occupation: Working in a [employer]/ retired Section Notes: Nonsmoker; drinks beers on weekends--none during the week Nonsmoker; drinks a few beer s on the weekends--none during the week Problems Problem Type SNOMED Code ICD Code Onset Dates Problem Status W/U Status Risk Notes Problem Colon cancer screening (758830658) Colon cancer screening (Z12.11) Active confirmed Problem Screening for malignant neoplasm of colon (765732139) Encounter for screening for malignant neoplasm of colon (Z12.11) Active confirmed Problem History of adenomatous polyp of colon (804620541) History of adenomatous polyp of colon (Z86.010) Active confirmed Problem History of polyp of colon (situation) (732934674) History of colon polyps (Z86.010) Active confirmed Problem Long-term current use of antiplatelet drug (648166667964072) Long-term use of aspirin therapy (Z79.82) Active confirmed Problem Constipation (92386720) Constipation, unspecified constipation type (K59.00) Active confirmed Problem Diverticulosis of colon (276815042) Diverticulosis of colon (K57.30) Active confirmed Plan Of Treatment Future Test Test Name Order Date COLONOSCOPY 08/28/2022 Insurance Providers Payer Name Payer Address Payer Phone Subscriber Number Group Number Insured Name Patient Relationship to Insured Coverage Start Date Coverage End Date [facility] [address] [address] [place] [address] [phone] [id number] DOMINGO ANDREW Self - patient is the insured MEDICARE OF [place] [address] [facility] [place] [address] [id number] DOMINGO ANDREW Self - patient is the insured Medical (General) History Medical History History ICD Code Denies NE,DM,CVA,Lung disease,renal dise ase Colonoscopy in 07/2007--hype rplastic polyp, sigmoid diverticulosis, internal hemorrhoids Hypertension Colonoscopy 03/2018 with a small tubular adenoma Surgical History Surgery Date(Month/Year)
--- OUTSIDE RECORDS SUMMARY | 2025-08-09 22:08 | XMS_ITS | Patient Health Record ---
[facility] Address [address] [place] [address] Care Team Providers Care Black Ash Worker Name Role Phone Sang PENDLETON, Rony Primary Care Provider Unavailab Petr Ashraf Unavailable [phone] Reason For Referral No Information Medications Medication [...] Status W/U Status Risk Notes Problem Onychomycosis (384067266) Onychomycosis (110.1) Active confirmed Problem Pain in limb (85740634) Pain in Limb (729.5) Active confirmed Problem Disorder of sebaceous gland (7493779) Xerosis (706.8) Active confirmed Plan Of Treatment No Information Insurance Providers Payer Name Payer Address Payer Phone Subscriber Number Group Number Insured Name Patient Relationship to Insured Coverage Start Date Coverage End Date [facility] [address] [place] [address] [phone] [id number] Shaquille Andrew Self - patient is the insured Medical (General) History Medical History History ICD Code hypertension cholesterol
== END 2025-08-09 16:17 | disposition home or self-care (01) ==
LOC: HO.HMCHD 15:38
PROVIDERS: PCP Physician Assistant; Visit Provider Physician Assistant
DX: I10 Essential (primary) hypertension (principal); E78.5 Hyperlipidemia, unspecified; N40.0 Benign prostatic hyperplasia without lower urinary tract symptoms

== ENCOUNTER → 2025-08-09 15:38 | Outpatient (BNVA) | payer MEDICARE, SELFPAY | PROVIDERS: PCP Physician Assistant; Visit Provider Physician Assistant | DX: E78.5 Hyperlipidemia, unspecified (principal); I10 Essential (primary) hypertension; N40.0 Benign prostatic hyperplasia without lower urinary tract symptoms; Z13.31 Encounter for screening for depression; Z13.39 Encounter for screening examination for other mental health and behavioral disorders | CPT/HCPCS: 96127; 99212 ==

== ENCOUNTER 2025-08-10 11:20 | Outpatient (REF) | payer MEDICARE, SELFPAY ==
[2025-08-10 12:30] LABS: Alanine Aminotransferase 33 U/L (0-40); Albumin Level 4.3 g/dL (3.5-5.0); Alkaline Phosphatase 123 U/L (39-117); Aspartate Amino Transferase 37 U/L (5-37); Cholesterol 199 mg/dL (<200); HDL Cholesterol 40 mg/dL (>40); Total Protein 8.1 g/dL (6.5-8.0); Triglycerides 202 mg/dL (<150)
--- OUTSIDE RECORDS SUMMARY | 2025-08-10 15:00 | XMS_ITS | Patient Health Record ---
Author Organization [facility] Address [address] [place] [address] Care Team Providers Care Director Of Pulmonary Unit Name Role Phone Sang (RETIRED) Rony PENDLETON Primary Care Provider Unavailable Vineet Delatorre Unavailable [phone] Allergies No Known Allergies Reason For Referral [...] Miscellaneous: Marital status: Occupation: Working in a [employer]/ retired Section Notes: Nonsmoker; drinks beers on weekends--none during the week Nonsmoker; drinks a few beer s on the weekends--none during the week Problems Problem Type SNOMED Code ICD Code Onset Dates Problem Status W/U Status Risk Notes Problem Colon cancer screening (950396489) Colon cancer screening (Z12.11) Active confirmed Problem Screening for malignant neoplasm of colon (645360241) Encounter for screening for malignant neoplasm of colon (Z12.11) Active confirmed Problem History of adenomatous polyp of colon (307457093) History of adenomatous polyp of colon (Z86.010) Active confirmed Problem History of polyp of colon (situation) (966599709) History of colon polyps (Z86.010) Active confirmed Problem Long-term current use of antiplatelet drug (638630684609603) Long-term use of aspirin therapy (Z79.82) Active confirmed Problem Constipation (95597033) Constipation, unspecified constipation type (K59.00) Active confirmed Problem Diverticulosis of colon (560703544) Diverticulosis of colon (K57.30) Active confirmed Plan Of Treatment Future Test Test Name Order Date COLONOSCOPY 08/28/2022 Insurance Providers Payer Name Payer Address Payer Phone Subscriber Number Group Number Insured Name Patient Relationship to Insured Coverage Start Date Coverage End Date [facility] [address] [address] [place] [address] [phone] [id number] DOMINGO ANDREW Self - patient is the insured MEDICARE OF [place] [address] [facility] [place] [address] [id number] DOMINGO ANDREW Self - patient is the insured Medical (General) History Medical History History ICD Code Denies CA,DM,CVA,Lung disease,renal dise ase Colonoscopy in 07/2007--hype rplastic polyp, sigmoid diverticulosis, internal hemorrhoids Hypertension Colonoscopy 03/2018 with a small tubular adenoma Surgical History Surgery Date(Month/Year)
--- OUTSIDE RECORDS SUMMARY | 2025-08-10 15:00 | XMS_ITS | Patient Health Record ---
[facility] Address [address] [facility] [place] [address] Care Team Providers Care Retail Management Trainee Name Role Phone Sang PENDLETON, Rony Primary Care Provider Unavailab Petr Ashraf Unavailable [phone] Reason For Referral No Information Medications Medication [...] Status W/U Status Risk Notes Problem Onychomycosis (511210851) Onychomycosis (110.1) Active confirmed Problem Pain in limb (04786439) Pain in Limb (729.5) Active confirmed Problem Disorder of sebaceous gland (8375967) Xerosis (706.8) Active confirmed Plan Of Treatment No Information Insurance Providers Payer Name Payer Address Payer Phone Subscriber Number Group Number Insured Name Patient Relationship to Insured Coverage Start Date Coverage End Date [facility] [address] [place] [address] [phone] [id number] Shaquille Andrew Self - patient is the insured Medical (General) History Medical History History ICD Code hypertension cholesterol
== END 2025-08-10 11:21 | disposition home or self-care (01) ==
LOC: HO.LAB 11:20
PROVIDERS: PCP Physician Assistant; Visit Provider Physician Assistant
DX: E78.5 Hyperlipidemia, unspecified (principal)
CPT/HCPCS: 36415; 80061; 80076